=== PATIENT | female | born 1995 | race Caucasian/White ===

== ENCOUNTER 2023-02-05 18:13 | Outpatient (OUT) | payer OTHER, SELFPAY ==
--- NOTE | 2023-02-05 18:15 | US_ITS ---
[address] [address] Patient Name: EVELYN MARION MRN: [id number] date: 1995 Sex: F Assigned Patient Location: Current Patient Location: Accession/Order Number: [id number] Exam Date: 02/05/2023 18:20 Report Date: 02/08/2023 15:45 At the request of: NICK HILTON Procedure: US OB anatomy EXAMINATION: US OB anatomy HISTORY: 20 WEEKS GESTATION Z 3A.20 COMPARISON: No relevant comparison available. TECHNIQUE: Transabdominal sonographic examination was performed for obstetrical and evaluation. FINDINGS: Number: 1 Heart Rate: 138.5 bpm H.B. /min Amniotic Fluid Volume: Subjectively normal Placental Location: ANTERIOR Cervix Length: 3.5 cm, closed ANATOMY: Normal Structures -cerebellum, choroid plexus, cisterna magna, lateral cerebral ventricles, orbits, midline falx, hard palate, four-chamber heart, RVOT, LVOT, stomach, kidneys, bladder, three-vessel cord, right upper extremity, left upper extremity, right lower extremity, left lower extremity. SUBOPTIMALLY SEEN: Abdominal cord insertion and spine ABNORMALITIES: None BIOMETRY: BPD: 4.6 cm 19 weeks 6 days HC: 17.9 cm 20 weeks 3 days AC: 15.0 cm 20 weeks 2 days FL: 3.1 cm 19 weeks 4 days EFW:323.9 grams; 28% FL/AC: 20.7 FL/BPD: 67.7 HC/AC: 1.2 GESTATIONAL AGE: Age by EDC: 20 weeks 2 days MONO by EDC: 06/23/2023 Age by current US: 20 weeks 0 days MONO by current US: 06/25/2023 US/US OB anatomy IMPRESSION: 1. Single live intrauterine with growth detailed above. Electronically authenticated by: JALEN ALVAREZ Date: 02/08/2023 15:45
== END 2023-02-05 18:14 | disposition home or self-care (01) ==
PROVIDERS: PCP Family Medicine; Visit Provider Midwife
DX: Z34.92 Encounter for supervision of normal pregnancy, unspecified, second trimester (principal)
CPT/HCPCS: 76805

== ENCOUNTER 2023-02-13 20:54 | Emergency (ER) | payer OTHER, SELFPAY ==
[2023-02-13 22:08] VITALS: BP 127/80; PULSE 92; RESP 20; TEMP 37.3; O2SAT 94; BMI 24.5
[2023-02-13 22:40] LABS: Bilirubin Urine NEGATIVE (NEGATIVE); Blood Urine NEGATIVE (NEGATIVE); Clarity Urine CLEAR (CLEAR); Color Urine LT. YELLOW (YELLOW); Glucose Urine UA NEGATIVE (NEGATIVE); Ketones Urine NEGATIVE (NEGATIVE); Leukocyte Esterase Urine NEGATIVE (NEGATIVE); Nitrite Urine NEGATIVE (NEGATIVE); Protein Urine NEGATIVE (NEG/TRACE); Specific Gravity Urine <=1.005 (1.005-1.025); Urobilinogen Urine 0.2 EU/dL (0.2-1.0)
[2023-02-13 22:43] LABS: Urine Microscopic Indicated NO
--- NOTE | 2023-02-13 23:34 | ED.GENADUL1 ---
HPI - General Adult General Chief complaint: Headache Stated complaint: HEADACHE Time Seen by Provider: 02/13/23 23:30 Source: patient Source information: PATIENT Mode of arrival: walk-in Limitations: no limitations History of Present Illness HPI narrative: 27-year-old female presents for headache. She's , twenty-one weeks. 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 She's been taking Fioricet and Tylenol. It's behind her right eye. No trauma fever or stiff neck and she hasn't had sore throat or cough or earache. The pain is moderate. She feels the baby moving and she's had no vaginal bleeding. Related Data Home Medications Medication Instructions Recorded Confirmed VITAMINS 02/13/23 buspirone 10 mg tablet mg 02/13/23 shjzaxjqtq-bgeqawvvjcxcj-evvavzke tab 02/13/23 50 mg-325 mg-40 mg tablet magnesium 02/13/23 sertraline 100 mg tablet mg 02/13/23 Previous Rx's Medication Instructions Recorded metoclopramide HCl 10 mg tablet 10 mg PO Q6H PRN headache #30 tabs 02/14/23 (Reglan) Allergies Allergy/AdvReac Type Severity Reaction Status Date / Time sumatriptan Allergy Severe Chest Pain Verified 02/13/23 22:17 topiramate [From Topamax] Allergy Severe Hallucinati Verified 02/13/23 22:17 ng Review of Systems ROS Narrative A ten point review of systems is negative except as noted above. PFSH PFSH Social History Smoking status: Never smoker Exam Narrative Exam Narrative: Nurse's notes and vital signs reviewed. The patient is not hypoxic. General: Alert, no acute distress, patient resting comfortably Patient is not toxic or lethargic. Skin: warm, intact, no pallor noted Head: Normocephalic, atraumatic Eye: Normal conjunctiva, no exudates Ears, Nose, Throat: oral mucosa well hydrated, neck supple, no nuchal rigidity Neck: neck supple Cardio: Regular Rate and Rhythm Respiratory: No acute distress, no rhonchi, wheezing or rales noted. No stridor or retractions are noted. Abdomen: soft, nontender, no masses detected. No rebound, guarding, or rigidity noted. Neurological: and or oriented. Upper and lower extremity strength intact. Psychiatric: Cooperative Constitutional Vital Signs, click to edit/add: Last Vital Signs Temp 99.2 F 02/13/23 22:08 Pulse 92 H 02/13/23 22:08 Resp 20 02/13/23 22:08 BP 127/80 02/13/23 22:08 Pulse Ox 94 L 02/13/23 22:08 O2 Del Method Room Air 02/13/23 22:08 Course Vital Signs Vital signs: Vital Signs Temperature 99.2 F 02/13/23 22:08 Pulse Rate 92 H 02/13/23 22:08 Respiratory Rate 02/13/23 22:08 Blood Pressure 127/80 02/13/23 22:08 Pulse Oximetry 94 L 02/13/23 22:08 Oxygen Delivery Method Room Air 02/13/23 22:08 Temperature 99.2 F 02/13/23 22:08 Pulse Rate 92 H 02/13/23 22:08 Respiratory Rate 02/13/23 22:08 Blood Pressure 127/80 02/13/23 22:08 Pulse Oximetry 94 L 02/13/23 22:08 Oxygen Delivery Method Room Air 02/13/23 22:08 Medical Decision Making MDM Narrative Medical decision making narrative: the patient was given IV fluids and IV Reglan and feels improved. She is discharged home with a prescription for Reglan. I've no clinical suspicion of sinusitis or acute intracranial pathology. Treatment diagnosis and follow-up were discussed with the patient and her parents. Differential Diagnosis Differential Diagnosis: nonspecific headache, sinusitis, intracranial hemorrhage Lab Data Lab results reviewed: Yes I reviewed the patient's lab results Labs: Lab Results 02/13/23 02/13/23 Range/Units 22:20 23:43 WBC 12.4 H (4.0-11.0) 10^3/uL RBC 3.47 L (4.20-5.40) 10^6/uL Hgb 10.4 L (12.0-16.0) g/dL Hct 31.6 L (36.0-48.0) % MCV 91.1 (81.0-99.0) fL MCH 30.0 (26.7-34.0) pg MCHC 32.9 (29.9-35.2) g/dL RDW 13.9 (11.0-15.0) % Plt Count 211 (150-450) 10^3/uL MPV 9.8 (9.5-13.5) fL Neut % (Auto) 77.1 H (43.0-75.0) % Lymph % (Auto) 14.0 L (20.5-60.0) % Elk % (Auto) 7.3 (1.7-12.0) % Eos % (Auto) 0.7 L (0.9-7.0) % Baso % (Auto) 0.2 (0.2-2.0) % Neut # (Auto) 9.6 H (1.4-6.5) 10^3/uL Lymph # (Auto) 1.7 (1.2-3.8) 10^3/uL Elk # (Auto) 0.9 H (0.3-0.8) 10^3/uL Eos # (Auto) 0.1 (0.0-0.7) 10^3/uL Baso # (Auto) 0.0 (0.0-0.1) 10^3/uL Abs Immat Gran (auto) 0.09 H (0.00-0.03) 10^3/uL Imm/Tot Granulo (auto) 0.7 H (0.0-0.5) % Sodium 137 (136-145) mmol/L Potassium 3.9 (3.5-5.1) mmol/L Chloride 103 (98-107) mmol/L Carbon Dioxide 25.3 (21.0-32.0) mmol/L Anion Gap 12.6 BUN 12.0 (7.0-18.0) mg/dL Creatinine 0.53 L (0.55-1.02) mg/dL Est GFR ( Amer) >60 (>=60) Est GFR (Non-Af Amer) >60 (>=60) BUN/Creatinine Ratio 22.6 Glucose 81 (74-106) mg/dL Calcium 8.2 L (8.5-10.1) mg/dL Urine Color Lt. yellow (YELLOW) Urine Clarity Clear (CLEAR) Urine pH 7.0 (5.0-9.0) Ur Specific Broussard <=1.005 A (1.005-1.025) Urine Protein Negative (NEG/TRACE) mg/dL Urine Glucose (UA) Negative (NEGATIVE) mg/dL Urine Ketones Negative (NEGATIVE) mg/dL Urine Occult Blood Negative (NEGATIVE) Urine Nitrite Negative (NEGATIVE) Urine Bilirubin Negative (NEGATIVE) Urine Urobilinogen 0.2 (0.2-1.0) EU/dL Ur Leukocyte Esterase Negative (NEGATIVE) Discharge Plan Discharge Chief Complaint: Headache Clinical Impression: Headache Patient Disposition: Home, Self-Care Time of Disposition Decision: 01:22 Condition: Good Mode of Transportation: Private Vehicle Prescriptions / Home Meds: New metoclopramide HCl [Reglan] 10 mg tablet 10 mg PO Q6H PRN (Reason: headache) Qty: 30 0RF No Action sertraline 100 mg tablet ijmatsiztz-xcrygsfcwjnuk-ngkn 50-325-40 mg tablet buspirone 10 mg tablet magnesium Rx Instructions: 400MG PO DAILY AT HS VITAMINS Rx Instructions: 1 TAB DAILY Instructions: Acute Headache (ED) Stand Alone Forms: Portal Instructions Referrals: JAQUELINE GIBBS [Primary Care Provider] - 1 week
[2023-02-13 23:50] LABS: Basophils Percent Auto 0.2 % (0.2-2.0); Eosinophils Absolute Auto 0.1 10^3/uL (0.0-0.7); Eosinophils Percent Auto 0.7 % (0.9-7.0); Hematocrit 31.6 % (36.0-48.0); Hemoglobin 10.4 g/dL (12.0-16.0); Immature Granulocytes Abs Auto 0.09 10^3/uL (0.00-0.03); Immature Granulocytes Pct Auto 0.7 % (0.0-0.5); Lymphocytes Absolute Auto 1.7 10^3/uL (1.2-3.8); Mean Corpuscular HGB Conc 32.9 g/dL (29.9-35.2); Mean Corpuscular Volume 91.1 fL (81.0-99.0); Mean Platelet Volume 9.8 fL (9.5-13.5); Monocytes Absolute Auto 0.9 10^3/uL (0.3-0.8); Monocytes Percent Auto 7.3 % (1.7-12.0); Neutrophils Absolute Auto 9.6 10^3/uL (1.4-6.5); Neutrophils Percent Auto 77.1 % (43.0-75.0); Platelet Count 211 10^3/uL (150-450); Red Blood Count 3.47 10^6/uL (4.20-5.40); Red Cell Distribution Width 13.9 % (11.0-15.0); White Blood Count 12.4 10^3/uL (4.0-11.0)
[2023-02-14 00:01] LABS: Anion Gap 12.6; BUN Creatinine Ratio 22.6; Calcium 8.2 mg/dL (8.5-10.1); Carbon Dioxide 25.3 mmol/L (21.0-32.0); Chloride 103 mmol/L (98-107); Estimated GFR (African America >60 (>=60); Estimated GFR (Non-African Ame >60 (>=60); Glucose 81 mg/dL (74-106); Potassium 3.9 mmol/L (3.5-5.1); Sodium 137 mmol/L (136-145)
[2023-02-14] MEDS: METOCLOPRAMIDE HCL 10 MG/2 ML VIAL IVP (00:13)
[2023-02-14] MEDS: 0.9 % SODIUM CHLORIDE 1,000 ML 1000 ML IV (00:48)
[2023-02-14 01:30] VITALS: BP 127/80; PULSE 78; RESP 16; O2SAT 98
== END 2023-02-14 01:38 | disposition home or self-care (01) ==
PROVIDERS: Emergency Provider Emergency Medicine; PCP Family Medicine
DX: O99.891 Other specified diseases and conditions complicating pregnancy (principal); R51.9 Headache, unspecified; Z3A.21 21 weeks gestation of pregnancy
CPT/HCPCS: 36415; 80048; 81003; 85025; 96374; 99284

== ENCOUNTER 2023-04-30 16:53 | Outpatient (OUT) | payer BC, SELFPAY ==
[2023-04-30 17:08] VITALS: TEMP 36.5
[2023-04-30 17:09] VITALS: BP 133/74; PULSE 81; RESP 16
--- NOTE | 2023-04-30 17:22 | PC.NURSE ---
Addendum entered by Divina Hendrickson 04/30/23 17:28: Pt tani cxt's or leaking of fluid. Original Note: Pt states her c/o of increased of BPs today while working. 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 Pt also states she is has been dizzy and nauseous. Pt states this all began last night 04/29. Pt states she has had an overall healthy . Pt hx of anemia and miscarriage early 2022.
[2023-04-30 17:31] VITALS: BP 126/74; PULSE 75
[2023-04-30 17:34] LABS: Bilirubin Urine NEGATIVE (NEGATIVE); Blood Urine NEGATIVE (NEGATIVE); Clarity Urine CLEAR (CLEAR); Color Urine LT. YELLOW (YELLOW); Glucose Urine UA NEGATIVE (NEGATIVE); Ketones Urine NEGATIVE (NEGATIVE); Leukocyte Esterase Urine NEGATIVE (NEGATIVE); Nitrite Urine NEGATIVE (NEGATIVE); Protein Urine NEGATIVE (NEG/TRACE); Urobilinogen Urine 0.2 EU/dL (0.2-1.0)
[2023-04-30 17:36] LABS: Urine Microscopic Indicated NO
== END 2023-04-30 18:05 | disposition home or self-care (01) ==
LOC: FBCO 16:58 → FBC 17:00
PROVIDERS: PCP Family Medicine; Visit Provider Obstetrics & Gynecology
DX: O16.9 Unspecified maternal hypertension, unspecified trimester (principal); Z3A.36 36 weeks gestation of pregnancy
CPT/HCPCS: 59025; 81003; 87811

== ENCOUNTER 2023-06-08 11:13 | Inpatient (IN) | payer BC, SELFPAY ==
[2023-06-08] VITALS (31 sets, daily range): BP systolic 99–138; BP diastolic 51–87; PULSE 67–111; RESP 15–24; TEMP 36.1–37.3; O2SAT 97–99
--- OUTSIDE RECORDS SUMMARY | 2023-06-08 11:20 | XMS_ITS | CCD ---
Author Name Unknown Address [address] [place] [address] Organization [facility] Care Team Providers Care Force Dispatcher Name Role Phone Sol Gibbs Primary Care Provider Sol Gibbs Unavailable Unavailable Unavailable Sol Gibbs MD Primary Care Provider SOL GIBBS Primary Care Unavailable KEISHA HURT Referring Unavailable SOL GIBBS Primary Care Unavailable SIMI BARBOZA Attending Unavailable Robles Hardin Attending Unavailable Robles Hardin Admitting Unavailable Sol Gibbs Primary Care Unavailable SOL GIBBS Attending Unavailable NICK HILTON Attending Unavailable NICK HILTON Attending Unavailable FLORONICK Attending Unavailable FLORONICK Attending Unavailable SHANNEN HILTONE Bettye Referring Unavailable NICK HILTON Attending Unavailable Allergies Allergy Classification Reported Allergen(s) Allergy Type Date of Onset Reaction(s) Facility (2 sources) topiramate; Translations: [Topamax] Drug Allergy 1 Other (See Comments) [facility] [employer] 250 DO Work Phone: (1 source) Triptans; Translations: [Triptans] Allergy to drug (finding) Chest Pain, Palpitations [facility] [employer] 250 DO Work Phone: (1 source) SUMAtriptan Drug Allergy 1 Other (See Comments) [employer] (1 source) topiramate Drug Allergy 2 [facility] Rep[facility] (1 source) [id number] Antimigraine Agents Drug allergy (disorder) 2 [facility] Medications Current Medications Medication Drug Class(es) Dates Sig (Normalized) Sig (Original) magnesium sulfate 4 g, lidocaine (cardiac) (XYLOCAINE) 100 mg in sodium chloride 0.9 % 250 mL IVPB (1 source) Start: 11-13-2019 magnesium sulfate 4 g, lidocaine (cardiac) (XYLOCAINE) 100 mg in sodium chloride 0.9 % 250 mL IVPB 2 ml metoclopramide 5 mg/ml prefilled syringe (2 sources) Dopamine-2 Receptor Antagonist Start: 09-15-2021 metoclopramide (REGLAN) injection 10 mg Start: 11-13-2019 metoclopramide (REGLAN) tablet 10 mg omeprazole 20 mg delayed release oral capsule (2 sources) Proton Pump Inhibitor Start: 06-22-2012 take 1 capsule by mouth once daily omeprazole (PRILOSEC) 20 MG capsule Indications: Chronic generalized abdominal pain Take 1 capsule by mouth Daily. 30 capsule 3 06/22/2012 Active polyethylene glycol 3350 [id number] mg powder for oral solution (2 sources) Osmotic Laxative take 17 g by mouth once daily polyethylene glycol (GLYCOLAX) packet Take 17 g by mouth daily. 0 Active 1000 ml sodium chloride 9 mg/ml injection (3 sources) Start: 09-15-2021 0.9 % sodium chloride infusion Start: 11-13-2019 End: 11-13-2019 0.9 % sodium chloride bolus Start: 11-13-2019 0.9 % sodium c hloride infusion Completed/Discontinued Medications Medication Drug Class(es) Dates Sig (Normalized) Sig (Original) [id number] 60 actuat albuterol 0.09 mg/actuat metered dose inhaler (1 source) beta2-Adrenergi c Agonist Start: 01-01-2021 Albuterol Sulfate HFA 108 (90 Base) MCG/ACT Inhalation Aerosol Solution Quantity: 8 Refills: 0 Ordered: 01-Jan-2021 DO Start : 01-Jan-2021 Active cyclobenzaprine hydrochloride 10 mg oral tablet (1 source) Muscle Relaxant Start: 11-12-2020 take 1 tablet by mouth twice daily Cyclobenzaprine HCl - 10 MG Oral Tablet Take 1 tablet twice daily Quantity: 0 Refills: 0 Ordered: 02-Apr-2021 DO Start : 12-Nov-2020 Active cyproheptadine hydrochloride 4 mg oral tablet (1 source) Start: 05-21-2021 take 1 tablet by mouth three times daily Cyproheptadine HCl - 4 MG Oral Tablet TAKE 1 TABLET 3 TIMES DAILY. Quantity: 0 Refills: 0 Ordered: 21-May-2021 DO Start : 21-May-2021 Active dexamethasone (DECADRON) 40 mg in sodium chloride 0.9 % 100 mL IVPB (2 sources) Start: 09-15-2021 End: 09-15-2021 dexamethasone (DECADRON) 40 mg in sodium chloride 0.9 % 100 mL IVPB Start: 11-13-2019 dexamethasone (DECADRON) 40 mg in sodium chloride 0.9 % 100 mL IVPB Magnesium (1 source) Magnesium CAPS T JUICE 1 CAPSULE Daily Quantity: 0 Refills: 0 Ordered: 04-Jun-2021 DO Active magnesium sulfate 4,000 mg, lidocaine (cardiac) (XYLOCAINE) 100 mg in sodium chloride 0.9 % 250 mL IVPB (1 source) Start: 09-16-19 End: 09-16-19 magnesium sulfate 4,000 mg, lidocaine (cardiac) (XYLOCAINE) 100 mg in sodium chloride 0.9 % 250 mL IVPB metoprolol tartrate 25 mg oral tablet (1 source) beta-Adrenergic Nancie Start: 04-01-20 take 1 tablet by mouth twice daily Metoprolol Tartrate 25 MG Oral Tablet TAKE 1 TABLET TWICE DAILY. Quantity: 180 Refills: 3 Ordered: 19-Jun-2020 DO Start : 01-Apr-2020 Active Multi Vitamin TABS (1 source) Multi Vitamin TA BS TAKE 1 TABLET DAILY. Quantity: 0 Refills: 0 Ordered: 04-Jun-2021 DO Active ondansetron 8 mg disintegrating oral tablet (1 source) Serotonin-3 Receptor Antagonist Start: 08-21-19 21 Ondansetron 8 MG Oral Tablet Disintegrating As needed. Quantity: 0 Refills: 0 Ordered: 20-Aug-2020 DO Start : 20-Aug-2020 Active promethazine hydrochloride 25 mg oral tablet (1 source) Phenothiazine Start: 04-01-20 20 Promethazine HCl - 25 MG Oral Tablet As needed. Quantity: 0 Refills: 0 Ordered: 19-Jun-2020 DO Start : 01-Apr-2020 Active ubidecarenone 200 mg oral capsule (1 source) Co Q-10 200 MG O ral Capsule TAKE DIRECTED. Quantity: 0 Refills: 0 Ordered: 04-Jun-2021 DO Active ubrogepant 50 mg oral tablet (1 source) Start: 08-21-19 take 1 tablet by mouth once daily as needed Ubrelvy 50 MG Oral Tablet TAKE 1 TABLET Daily prn Quantity: 0 Refills: 0 Ordered: 20-Aug-2020 DO Start : 20-Aug-2020 Active 5 ml valproic acid 100 mg/ml injection (2 sources) Mood Stabilizer, Anti-epileptic Agent Start: 09-16-19 End: 09-16-19 valproate (DEPACON) injection 1,090 mg Start: 11-13-2019 valproate (DEP ACON) injection 2,000 mg zolpidem tartrate 10 mg oral tablet (1 source) gamma-Aminobutyric Acid-ergic Agonist Start: 04-01-2021 take 1 tablet by mouth at bedtime as needed Zolpidem Tartrate 10 MG Oral Tablet TAKE 1 TABLET AT BEDTIME NEEDED. Quantity: 0 Refills: 0 Ordered: 01-Apr-2021 DO Start : 01-Apr-2021 Active zonisamide 100 mg oral capsule (1 source) Anti-epileptic Agent Start: 04-02-2020 take 1 capsule by mouth once daily Zonegran 100 MG Oral Capsule TAKE 1 CAPSULE Daily Quantity: 0 Refills: 0 Ordered: 13-Jun-2020 DO Start : 02-Apr-2020 Active Problems Active Problems Problem Classification Problem Date Documented Date Episodic/Chronic Cardiac dysrhythmias (2 sources) Palpitations; Translations: [Palpitations] Episodic Headache; including migraine (3 sources) Migraine without aura, not refractory ; Translations: [Migraine without aura, not intractable, with status migrainosus] Onset: 09-05-2021 Chronic Heart valve disorders (1 source) Heart murmur; Translations: [Undiagnosed cardiac murmurs] Episodic Other lower respiratory disease (1 source) Dyspnea on exertion; Translations: [Other respiratory abnormalities] Episodic Other screening for suspected conditions (not mental disorders or infectious disease) (1 source) Electrocardiogram abnormal; Translations: [Nonspecific abnormal electrocardiogram [ECG] [EKG]] Episodic Residual codes; unclassified (1 source) Body mass index 20-24 - normal; Translations: [Body Mass Index between 19-24, adult] Episodic Thyroid disorders (2 sources) Secondary hypothyroidism; Translations: [Other specified hypothyroidism] Onset: 06-22-2012 06-22-2012 Chronic Unclassified (1 source) R00.2 - Palpitations; Translations: [R00.2 - Palpitations] Onset: 06-14-2021 Viral infection (1 source) Disease caused by 2019-nCoV; Translations: [Other specified viral infection] Episodic Past or Other Problems Problem Classification Problem Date Documented Da te Episodic/Chronic Abdominal pain (2 sources) Generalized abdominal pain; Translations: [Generalized abdominal pain] Onset: 06-22-2012 06-22-2012 Episodic Other gastrointestinal disorders (2 sources) Chronic constipation; Translations: [Other constipation] Onset: 06-22-2012 06-22-2012 Episodic Unclassified (1 source) Never smoked tobacco; Translations: [Never smoker] Results Test Name Value Interpretation Reference Range Facility US OB FOLLOW UP TRANSABDOMIN AL APPROACHon 04-13-2023 OB FOLLOW UP TRANSABDOMINAL APPROACH FINDINGS: Single live intrauterine . heart rate 153 bpm. Somatic movement identified. Breech position. Anterior grade 0 placenta. GALINA 15.09 cm. Cervical length 3.8 cm. Estimated sonographic gestational age 27 weeks, 6 days. Gestational age by dates, 28 weeks, 6 days. Estimated sonographic date of delivery July 13, 2023. Estimated weight 1305 g (13.1% by LMP percentile). BPD 7.45 cm. HC 27.59 cm. FL 5.01 cm. AC 25.65 cm. IMPRESSION: Impression: Single live intrauterine with estimated sonographic gestational age 27 weeks, 6 days. Estimated weight 1305 g. ELECTRONICALLY SIGNED BY: Esdras Mercer MD Normal Not Available US Venous, Unilat, Upper Ext Lefton 11-07-2021 US Venous, Unilat, Upper Ext Left HISTORY: Wrist pain, s/p intravenous infusion FINDINGS: No deep venous thrombosis. Focal thrombus localizes to the palpable lump (palmar aspect of the wrist), presumably within or near the intravenous access site. No extension into the deep system. Overall length approximates 1.9 cm. IMPRESSION: 1. No deep venous thrombosis. 2. Superficial thrombophlebitis, distal forearm/wrist. Report reported and signed by Mike Tyson on 11/07/2021 1227 Normal [facility] Director Of Channel Marketing HCG, SERUM, QUALITATIVEon hCG Qual Negative [facility] Serum HCG Qualitativeon Serum HCG Qualitative Negative Normal [facility] Comment on above: Performed By: #### S HCG #### [facility] [address] [place] [address] Q - TSH and T4,FREEon 2021 Free T4 [Mass/Vol] 1.2 ng/dL Normal 0.8-1.8 Moise [facility] Director Of Channel Marketing Comment on above: Order Comment: [facility] Testing performed at: [employer] [facility] [address], [address] [place] [address], [address] [place] [address], [address] [place] [address], Obstetrics Teacher: Devaughn Omalley MD [facility] Collection Date/Time: [facility] Results Received Date/Time: [facility] Reported Date/Time: Performed By: #### 3 [id number] #### [facility] Default [address] [place] [address] TSH Qn 1.51 m[IU]/L Normal [facility] Comment on above: Order Comment: [facility] Testing performed at: [employer] [facility] [address], [address] [place] [address], [address] [place] [address], [address] [place] [address], Obstetrics Teacher: Devaughn Omalley MD [facility] Collection Date/Time: [facility] Results Received Date/Time: [facility] Reported Date/Time: Result Comment: Refe rence Range > or = 20 Years 0.40-4.50 Ranges First trimester 0.26-2.66 Second trimester 0.55-2.73 Third trimester 0.43-2.91 Performed By: #### 3 128 #### [facility] [address] [place] [address] Office Visit (Cardiology)on 06-04-2021 Follow-up visit Diagnoses/Problems Assessed Dyspnea on minimal exertion (786.09) (R06.00) Sinus tachycardia (427.89) (R00.0) COVID-19 (079.89) (U07.1) Body mass index (BMI) of 21.0 to 21.9 in adult (V85.1) (Z68.21) Patient Instructions By signing my name below, I, Harleen Maddox LPN, attest that this documentation has been prepared under the direction and in the presence of Dr. Franc Escobedo DO. All medical record entries made by the Franciscaibe were at my direction and personally dictated by me. I have reviewed the chart and agree that the record accurately reflects my personal performance of the history, physical exam, discussion and plan. Please bring all medicines, vitamins, and herbal supplements with you when you come to the office. Prescriptions will not be filled unless you are compliant with your follow up appointments or have a follow up appointment scheduled as per instruction of your physician. Refills should be requested at the time of your visit. Follow up as needed only Chief Complaint EVELYN MARION is being seen for an annual follow-up of High heart rate 140-160 resting. 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 She recently had COVID illness, primarily affecting the lungs, did not need to be hospitalized and noted that resting heart rates were ranging between 120 and upwards as high as 160. She now has normalized her heart rate in the eighties, as noted today resting heart rate is 88 and after sitting and resting quietly is down to 80 beats a minute. She has no history of arrhythmia other than sinus tachycardia, has a history of thyroid nodule without hyper or hypothyroidism. There is no evidence of syncope or evidence of orthostatic hypotension. She does have a history of migraines and reactive airways details of medications have been reviewed. I do not believe this is POTS syndrome at this point in time she may have inappropriate sinus tachycardia that could be exacerbated by some of her other medications including albuterol, possibly zolpidem or Zonegran or promethazine. In any event she is otherwise healthy, will continue to recommend metoprolol and may increase her morning dose to 50 mg as needed, no further testing is warranted. If she has persistent recurrent sinus tachycardia, consideration for referral for inappropriate sinus tachycardia to EP service may be warranted. Surgical History Problems Denied: History of Complete colonoscopy History of Esophagogastroduodenoscopy History of Lymph node surgery Current Meds Medication NameInstruction Albuterol Sulfate HFA 108 (90 Base) MCG/ACT Inhalation Aerosol Solution Co Q-10 200 MG Oral CapsuleTAKE DIRECTED. Cyclobenzaprine HCl - 10 MG Oral TabletTake 1 tablet twice daily Cyproheptadine HCl - 4 MG Oral TabletTAKE 1 TABLET 3 TIMES DAILY. Magnesium CAPSTAKE 1 CAPSULE Daily Metoprolol Tartrate 25 MG Oral TabletTAKE 1 TABLET TWICE DAILY. Multi Vitamin TABSTAKE 1 TABLET DAILY. Ondansetron 8 MG Oral Tablet DisintegratingAs needed. Promethazine HCl - 25 MG Oral TabletAs needed. Ubrelvy 50 MG Oral TabletTAKE 1 TABLET Daily prn Zolpidem Tartrate 10 MG Oral TabletTAKE 1 TABLET AT BEDTIME NEEDED. Zonegran 100 MG Oral CapsuleTAKE 1 CAPSULE Daily Allergies Medication Topamax Hallucinations;; Recorded By: Crys Zamora; 06/03/2021 12:00:53 PM Triptans Chest Pain; Palpitations; Recorded By: Crys Zamora; 06/03/2021 12:00:53 PM Social History Problems Never smoker No illicit drug use Occasional alcohol use Occasional caffeine consumption Review of Systems Constitutional: not feeling tired. Cardiovascular: no intermittent leg claudication and as noted in HPI. Respiratory: shortness of breath, but no cough. Gastrointestinal: no change in bowel habits and no blood in stools. Integumentary: no skin rashes. Neurological: dizziness, but no seizures and no frequent falls. All other systems have been reviewed and are negative for complaint. Vitals Vital Signs Recorded: 04Jun2021 10:58AM Heart Rate88, L Brachial Artery [id number], LUE, Sitting [id number], LUE, Sitting Height5 ft 7 in Isqfyd784 lb BMI Ljwgijjstm72.3 kg/m2 BSA Calculated1.72 Tobacco Useb) No Fall Screeningc) Not medically indicated Physical Exam Constitutional: alert and in no acute distress. Neck: neck is supple, symmetric, trachea midline, no masses and no thyromegaly . Pulmonary: no increased work of breathing or signs of respiratory distress and lungs clear to auscultation. Cardiovascular: carotid pulses 2+ bilaterally with no bruit , JVP was normal, no thrills , regular rhythm, normal S1 and S2, no murmurs , pedal pulses 2+ bilaterally and no edema . Abdomen: abdomen non-tender, no masses and no hepatomegaly . Skin: skin warm and dry, normal skin turgor . Psychiatric judgment and insight is normal and oriented to person, place and time . Signatures Electronically signed by : Franc Escobedo DO; Jun 04 2021 1:39PM (more content not included)... Normal [employer] Tobacco Screening.on 022 Fall risk assessment c) Not medically indicated [facility] 250 DO Work Phone: Tobacco use status [facility] b) No [facility] 250 DO Work Phone: HCG, SERUM, QUALITATIVEon hCG Qual Negative [place], [place] Coding Summary.on 05-09-2018 Coding Summary. CODING DATE: 018 FINAL [facility] STATUS: Home (Routine DC) PAYOR: Government ADMIT DX: REASON FOR VISIT DX: Z01.419 Encounter for gynecological examination (general) (routine) without abnormal findings FINAL DX: PRINCIPAL: Z01.419 Encounter for gynecological examination (general) (routine) without abnormal findings SECONDARY: Z78.9 Other specified health status PROCEDURES DOCTOR NAME DATE NOTE: The code number assigned matches the documented diagnosis and / or procedure in the patient's chart. However, the narrative phrase printed from the coding software may appear abbreviated, or result in slightly different terminology. Coded By: Cris Joel CphT Date Saved: 05/09/2018 10:03 am Normal [facility] Lab Miscellaneouson 05-07-20 Status See Ref Lab Report Normal [facility] Comment on above: Performed By: #### 1 [id number] #### [facility] [address] [place] [address] Lab Miscellaneouson 04-28-20 Test Name PAP [facility] Comment on above: Performed By: #### 1 [id number] #### [facility] [address] [place] [address] Vital Signs Date Time Vital Sign Value Performing Clinician Gerald gutierrez 09-15-2021 14:33-0400 Diastolic blood pressure 70 mm[Hg] [facility] 2 [facility] 09-15-2021 14:33-0400 Heart rate 108 /min [address] 09-15-2021 14:33-0400 Systolic blood pressure 141 mm[Hg] [address] [place] 09-15-2021 10:30-0400 Body temperature 98.4 [degF] [address] [place] 09-15-2021 10:30-0400 Respiratory rate 18 /min [address] [place] 09-15-2021 10:30-0400 SaO2% (BldA) [Mass fraction] 100 % [address] [place] 06-04-2021 10:58-0500 Body height 170.18 cm Sol Llanos [employer] Work Phone: [facility] [employer] 250 DO Work Phone: 06-04-2021 10:58-0500 Body mass index (BMI) [Ratio] 21.3 kg/m2 Sol Llanos [employer] Work Phone: [facility] [employer] 250 DO Work Phone: 06-04-2021 10:58-0500 Body surface area Derived from formula 1.72 m2 Sol Llanos [employer] Work Phone: [facility] [employer] ([employer] 250 DO Work Phone: 06-04-2021 10:58-0500 Body weight 61.69 kg Sol Llanos [employer] Work Phone: [facility] [employer] 250 DO Work Phone: 06-04-2021 10:58-0500 Diastolic blood pressure 53 mm[Hg] Sol Llanos [employer] Work Phone: [facility] [employer] 250 DO Work Phone: 06-04-2021 10:58-0500 Heart rate 88 /min Sol Llanos [employer] Work Phone: [facility] [employer] 250 DO Work Phone: 06-04-2021 10:58-0500 Systolic blood pressure 108 mm[Hg] Sol Llanos [employer] Work Phone: [facility] [employer] 250 DO Work Phone: 11-13-2019 10:40-0400 BMI (Body Mass Index) 20 kg/m2 [facility] [place], [place] 11-13-2019 10:40-0400 Body Temperature 97.81 [degF] [facility] [place] [place] 11-13-2019 10:40-0400 Body weight 57.92 kg [facility] [place] , [place] 11-13-2019 10:40-0400 BP Diastolic 90 mm[Hg] [facility] [place] 11-13-2019 10:40-0400 BP Systolic 118 mm[Hg] [facility] [place] 11-13-2019 10:40-0400 Height 170.2 cm [facility] 1 [facility] [place] , [place] 11-13-2019 10:40-0400 Pulse (Heart Rate) 91 /min [facility] 1 [facility] [place], [place] 11-13-2019 10:40-0400 Pulse Oximetry 100 % [facility] 1 [facility] [place] , [place] 11-13-2019 10:40-0400 Respiratory Rate 16 /min [facility] [place] Encounters Encounter Date Encounter Type Care Provider Facility Start: 06-01-2023 End: 06-02-2023 ambulatory NICK L FLORO Not Available Start: 05-24-2023 End: 05-25-2023 ambulatory NICK L FLORO Not Available Start: 05-18-2023 End: 05-19-2023 ambulatory NICK L FLORO Not Available Start: 05-04-2023 End: 05-05-2023 ambulatory NICK L FLORO Not Available Start: 04-13-2023 End: 04-14-2023 ambulatory NICK L FLORO Not Available Start: 04-06-2023 End: 04-07-2023 ambulatory NICK L FLORO Not Available Start: 04-02-2022 End: 04-02-2022 Emergency department patient visit [facility] Start: 09-15-2021 End: 09-16-2021 ambulatory [facility] Start: 09-15-2021 End: 09-15-2021 Subsequent hospital visit by physician [facility] Infusion Bed 2 [facility] OP INFUSION Comment on above: Migraine without aur a and with status migrainosus, not intractable (Primary Dx) Start: 06-14-2021 End: 06-15-2021 Emergency department patient visit [facility] Facility:[facility] Start: 06-04-2021 Office outpatient vi sit 15 minutes Sol Llanos [employer] Work Phone: [facility] A 250 DO Work Phone: Start: 11-13-2019 End: 11-13-2019 Subsequent hospital visit by physician Osiel[facility] Infusion Bed 1 [facility] OP INFUSION Comment on above: Arrived Procedures Date Procedure Procedure Detail Performing Clinician Start: 09-15-2021 Gonadotropin chorion ic qualitative Keisha Hurt MD Work Phone: Start: 11-13-2019 Gonadotropin chorion ic qualitative Keisha Hurt Work Phone: Start: 06-21-2019 Echocardiography Esophagogastroduodenoscopy Honey Llanos Wonderly Work Phone: Procedure on lymph node Sol Llanos Wonder[employer] Work Phone: NEGATED: Highlighted row has not occurred! Total colonoscopy Sol Llanos [employer] Work Phone: Plan of Treatment Date Care Activity Detail Author Start: 01-16-2020 Influenza vaccination Flu vacc ine (Season Ended) [place], [place] Start: 12-05-2019 DTaP/Tdap/Td vaccine (2 - Td or Tdap) DTaP/Tdap/Td vaccine (2 - Td or Tdap) [facility] Start: 2018 Screening for malign ant neoplasm of cervix [facility] Start: 2016 DTaP/Tdap/Td vaccine (1 - Tdap) DTaP/Tdap/Td vaccine (1 - Tdap) [place], [place] Start: 2015 Hepatitis C screening Hepatitis C sc reen [facility] Start: 2015 Thyroid stimulating hormone measurement TSH [facility] Start: 06-03-2013 TSH Qn TSH testing [place], [place] Start: 2013 Screening for Chlamy lucia trachomatis Chlamydia screen [facility] Start: 2012 HIV screening HIV screen [facility] Start: 2009 Depression Screen Depression Screen [facility] Start: 2008 HPV vaccine (1 - 2-d ose series) HPV vaccine (1 - 2-dose series) [place], [place] Start: 08-12-1998 Hepatitis B vaccine (2 of 3 - 3-dose primary series) Hepatitis B vaccine (2 of 3 - 3-dose primary series) [facility] Start: 1998 Varicella vaccine (1 of 2 - 2-dose childhood series) Varicella vaccine (1 of 2 - 2-dose childhood series) [place], [place] Immunizations Immunization Date Immunization Notes Care Provider Ronny solano 04-23-2021 Moderna COVID-19 Vac cine 100 MCG/0.5ML Intramuscular Suspension Sol Llanos [employer] [facility] Work Phone: 04-09-2021 influenza, injectabl e, quadrivalent, contains preservative Sol Llanos Wonderly [facility] Work Phone: 06-05-2020 Moderna COVID-19 Vac cine 100 MCG/0.5ML Intramuscular Suspension Sol Llanos [employer] [facility] DO Work Phone: 05-08-2020 Moderna COVID-19 Vac cine 100 MCG/0.5ML Intramuscular Suspension Sol Llanos [employer] Work Phone: [facility] 250 DO Work Phone: 01-16-2020 influenza virus vacc ine, unspecified formulation Sol Llanos Wonderly Work Phone: [facility] 250 DO Work Phone: 05-08-2019 Moderna COVID-19 Vac cine 100 MCG/0.5ML Intramuscular Suspension Sol Llanos Wonderly Work Phone: [facility] 250 DO Work Phone: 04-03-2019 influenza, injectabl e, quadrivalent, preservative free Sol Llanos Wonderly Work Phone: [facility] [employer] 250 DO Work Phone: 02-14-2019 influenza virus vacc ine, unspecified formulation Sol [facility]lanos Wonderly [facility] Work Phone: 01-25-2018 hepatitis B vaccine, adult dosage Sol Llanos Wonderly Work Phone: [facility] 250 DO Work Phone: 06-21-2017 hepatitis B vaccine, adult dosage Sol Llanos Wonderly Work Phone: [facility] 250 DO Work Phone: 06-21-2017 varicella virus vaccine Sol Llanos Wonderly Work Phone: [facility] 250 DO Work Phone: 05-19-2017 varicella virus vaccine Sol Llanos Wonderly Work Phone: [facility] 250 DO Work Phone: 05-05-2017 Human Papillomavirus 9-valent vaccine oSl Llanos Wonderly Work Phone: [facility] [employer] 250 DO Work Phone: 04-30-2017 hepatitis B vaccine, adult dosage Sol Llanos Wonderly Work Phone: [facility] 250 DO Work Phone: 12-28-2016 Human Papillomavirus 9-valent vaccine Sol Llanos Wonderly Work Phone: [facility] DO Work Phone: 10-27-2016 Human Papillomavirus 9-valent vaccine Sol Llanos Wonderly Work Phone: [facility] [employer] 250 DO Work Phone: 12-04-2009 tetanus toxoid, redu reji diphtheria toxoid, and acellular pertussis vaccine, adsorbed Sol Llanos Wonderly Work Phone: [facility] 250 DO Work Phone: 07-15-1998 hepatitis B vaccine, pediatric or pediatric/adolescent dosage Sol Llanos Wonderjuanpablo Work Phone: [facility] 250 DO Work Phone: 07-15-1998 measles, mumps and rubella virus vaccine Sol Llanos Wonderjuanpablo Work Phone: [facility] 250 DO Work Phone: Payers Date Payer Category Payer Unknown [id number] 2023 Unknown [id number] 2021 [employer] others) [id number] 2021 Self-pay 2019 [employer] ( [employer] others) [facility] xxxxxxxxx 2019-Present [address] [place] [address] xxxxxxxxx [id number] 2019 [employer] ( and others) [id number] 1997 Unknown [id number]. 2.185 1997 Unknown [id number] [id number]. 2.173 1997 Unknown [id number] [id number]. 2.1259 1997 Unknown [id number] [id number]. 2.1259 1997 Unknown [id number] [id number]. 2.1259 1997 Unknown [id number] [id number]. 2.1259 1997 Unknown [id number] [id number]. 2.1259 1997 Unknown [id number]. 2.1259 1997 Unknown [id number] [id number]. 2.1259 Unknown Unknown [id number] 2.531 Social History Date Type Detail Facility Start: 05-11-2012 End: 06-22-2012 Tobacco smoking status NVIS [facility] smoker [facility] Start: 06-22-2012 [facility] use No illicit drug use [facility] [address] DO Work Phone: History of Present illness Narrative 09-15-2021 Shawnee Kang RN - 09/15/2021 10:30 AM EDT Note Date & Type Note Facility 09-15-2021 History of Present illness Narrative 1030 Patient arrived to unit ambulatory accompanied by family member to room 200. Pain level of migraine 6/10 1100 Vital signs obtained per flow sheets. IV initiated 22G in L hand. 1115 NaCl bolus started and blood draw completed for HCG serum. Sent to lab. Patient placed on Telemetry 1131 IV reglan provided for nausea, order called for lunch. 1203 HCG serum results returned and negative. Mag with lidocaine started. Pain level of migraine 6/10 1233 pain 6/10 started dexamethasone 1306 pain 5/10 valproate IV push started, 1250MG as per order to round up to nearest 250MG. To be pushed over 10 min 30 seconds. 1315 pain 4/10 IV Mag restarted 1325 pain 4/10 IV dexamethasone restarted. 1340 pain 4/10 IV push valproate 250MG, remaining from 3rd vial, pushed over 5 minutes. 1400 pain 3/10 after IV push completed. IV removed vital signs per flow sheet. Patient left ambulatory from unit. documented in this encounter [facility] Phone: Evaluation note Note Date & Type Note Facility Evaluation note Diagnosis Migraine without aura and with status migrainosus, not intractable- Primary Migraine without aura, without mention of intractable migraine with status migrainosus documented in this encounter [facility] Phone: Reason for visit Narrative Treatment Plan and Therapy Plan (Routine) - Authorized Note Date & Type Note Facility Reason for visit Narrative Specialty Diagnoses / Procedures Referred By Contvalerie t Referred To Contact Diagnoses Migraine without aura and with status migrainosus, not intractable Procedures ND INJ MAGNESIUM SULFATE ND DEXAMETHASONE SODIUM PHOS ND DRUGS UNCLASSIFIED INJECTION Keisha Hurt MD [address] [place] [address] [facility] [address] [place] [address] Referral ID Status Reason Start Date Expiration Date V isits Requested Visits Authorized [id number] Authorized 09/05/2021 09/05/2022 99 99 [facility] Phone: Summary Purpose Family History No Family History Records FoundUnknown Family Member Name Dates Details Family history of diabetes m ellitus: Mother(V18.0, Z83.3) Status:Active Essential hypertension, iraj gn: Mother, Father Status:Active Family history of sleep apne a: Mother(V19.8, Z82.0) Status:Active High serum cholestanol: Moth er, Father Status:Active High triglycerides: Mother Status:Active Advance Directives No Advanced Directives Records FoundDocuments on File Type Date Recorded 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 Patient reports 2/10 for headache pain. As per infusion orders patient is able to be discharged. No adverse reactions noted to medications and feels good to be able to go home. Patient left ambulatory accompanied by . * Shawnee Kang RN - 11/13/2019 2:19 PM EDT Patient still reporting 5/10 after first round of infusion medications completed. Started with Magnesum sulfate and lidocaine at 375ml/hr again. Neuro checks completed. * Shawnee Kang RN - 11/13/2019 12:52 PM EDT 1L NS infused. Patient complaints of 7/10 pain. Pt complaints of nausea, PO medication given per orders and protocol. magnesum sulfate and lidocaine infusion started at 375ml/hr. Neuro checks completed. Spouse at bedside. Patient resting with call light within reach. * Kati Thompson RN - 11/13/2019 10:00 AM EDT Pt here for SDT migraine transfusion,pain 7/10 to start. pt states she read over protocol, telemetry on, ns bolus infusing. Lab draw for test per order. Pt ordered lunch, resting in bed with lights out. No other c/o, no s/s of distress noted. Spouse at bedside. documented in this encounter Chief Complaint * EVELYN MARION is being seen for an annual follow-up of High heart rate 140- 160 resting. 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 She recently had COVID illness, primarily affecting the lungs, did not need to be hospitalized and noted that resting heart rateswere ranging between 120 and upwards as high as 160. She now has normalized her heart rate in the eighties, as noted today resting heart rate is 88 and after sitting and resting quietly is down to 80beats a minute. * She has no history of arrhythmia other than sinus tachycardia, has a history of thyroid nodule without hyper or hypothyroidism. There is no evidence of syncope or evidence of orthostatic hypotension.She does have a history of migraines and reactive airways details of medications have been reviewed. * I do not believe this is POTS syndrome at this point in time she may have inappropriate sinus tachycardia that could be exacerbated by some of her other medications including albuterol, possibly zolpidem or Zonegran or promethazine. * In any event she is otherwise healthy, will continue to recommend metoprolol and may increase her morning dose to 50 mg as needed, no further testing is warranted. If she has persistent recurrent sinus tachycardia, consideration for referral for inappropriate sinus tachycardia to EP service may be w arranted. Additional Source Comments INFORMATION SOURCE (unrecogn ized section and content) DATE CREATED AUTHOR 03/23/2019 [facility] DATE CREATED AUTHOR AUTHOR'S ORGANIZ ATION 06/23/2019 [facility] DATE CREATED AUTHOR AUTHOR'S ORGANIZ ATION 06/05/2021 [facility] DATE CREATED AUTHOR AUTHOR'S ORGANIZ ATION 09/17/2021 [facility] DATE CREATED AUTHOR AUTHOR'S ORGANIZ ATION 11/08/2021 [facility] Specialist DATE CREATED AUTHOR AUTHOR'S ORGANIZ ATION 04/13/2022 [facility] DATE CREATED AUTHOR AUTHOR'S ORGANIZ ATION 06/20/2022 [facility] DATE CREATED AUTHOR AUTHOR'S ORGANIZ ATION 06/06/2023 [facility] dical Specialists EPIC Reason for Visit (unrecogniz ed section and content) Status Reason Specialty Diagnoses / Procedures Referred By Contact Referred To Contact Authorized Infusion / Infusion Therapy Diagnoses Migraine, unspecified, intractable, without status migrainosus Procedures ND INJ MAGNESIUM SULFATE ND DEXAMETHASONE SODIUM PHOS ND DRUGS UNCLASSIFIED INJECTION Keisha Hurt MD [address] [place] [address] [facility] [address] [place] [address] Care Teams (unrecognized sec tion and content) Force Dispatcher Relationship Specialty Start Date End Date Sol Gibbs MD PCP - General 05/02/12 FOR RECORDS PERTAINING TO PATIENTS WHO ARE OR HAVE BEEN ENROLLED IN A CHEMICAL DEPENDENCY/SUBSTANCEABUSE PROGRAM, SOME INFORMATION MAY BE OMITTED. This clinical summary was aggregated from multiple sources. Caution should be exercised in using it in the provision of clinical care. This summary normalizes information from multiple sources, and as a consequence, information in this document may materially change the coding, format and clinical context of patient data. In addition, data may be omitted in some cases. CLINICAL DECISIONS SHOULD BE BASED ON THE PRIMARY CLINICAL RECORDS. [employer] [facility]. provides no warranty or guarantee of the accuracy or completeness of information in this document.
[2023-06-08 11:41] LABS: Amnisure POSITIVE (NEGATIVE)
--- NOTE | 2023-06-08 13:05 | PM.OBHP ---
OB - H&P: HPI History of Present Illness Chief complaint: OBSERVATION : 1 Para: 0 Gestational age based on last menstrual period: 37.6 Comments: patient has SROM at approximately 0930 this morning. Nitrazine negative in my office, pooling noted with speculum exam. Sent patient to unit for amni sure. RN calls me in my office and states the amni sure is positive for ROM. Admit with routine orders and pitocin augmentation History of Present Dating criteria: LMP confirmed by 1st trimester US care: good care Ultrasounds: normal 1st trimester US and normal mid trimester US complications comment: rupture of membranes at 37w6d Medical complications OB: other (history of migraines) Labs Blood type: A (+) positive Rubella: immune RPR/VDLR: nonreactive GBS status: negative HBsAG: negative Review of Systems ROS Status of ROS: 10 or more systems reviewed and unremarkable except as noted in history and below PFSH PFSH Social History Smoking status: Never smoker Meds Home Medications and Allergies Home Medications Medication Instructions Recorded Confirmed Type VITAMINS 1 tab PO DAILY 02/13/23 04/30/23 History buspirone 10 mg tablet mg 02/13/23 History huuasefoow-glbpyjtjugarj-wojtxdzw tab 02/13/23 History 50 mg-325 mg-40 mg tablet magnesium 400 mg PO DAILY 02/13/23 06/08/23 History sertraline 100 mg tablet 150 mg PO Q24H 02/13/23 04/30/23 History metoclopramide HCl 10 mg tablet 10 mg PO Q6H PRN headache #30 tabs 02/14/23 04/30/23 Rx (Reglan) docusate sodium 100 mg capsule 100 mg PO DAILY 04/30/23 06/08/23 History (Col-Rite) ferrous sulfate 325 mg (65 mg 325 mg PO BID 04/30/23 06/08/23 History iron) tablet (FeroSul) sertraline 150 mg capsule 150 mg PO Q24H 06/08/23 06/08/23 History Allergies Allergy/AdvReac Type Severity Reaction Status Date / Time sumatriptan Allergy Severe Chest Pain Verified 02/13/23 22:17 topiramate [From Topamax] Allergy Severe Hallucinati Verified 02/13/23 22:17 ng Exam Constitutional Vital Signs, click to edit/add: Last Vital Signs Pulse 78 06/08/23 12:34 BP 132/74 06/08/23 12:34 Common normals: no apparent distress and oriented x3 Orientation/consciousness: Yes awake, Yes oriented to person, Yes oriented to place and Yes oriented to time HENMT Common normals: normocephalic Eye Common normals: EOMs intact bilaterally General eye: normal appearance of both eyes Neck & C-Spine Common normals: full ROM and no lymphadenopathy General: normal visual inspection Lymph Lymphatic: no lymphadenopathy noted Chest Common normals: inspection of chest normal Respiratory Common normals: normal respiratory effort Cardio Common normals: regular rate and regular rhythm GI Common normals: Normal to inspection, nondistended, normoactive bowel sounds present Common normals: no CVA tenderness Back & Pelvis Common normals: no CVA tenderness General back: CVA tenderness Extremity Common normals: normal to inspection and full ROM Neuro Common normals: oriented x3 Psych Common normals: mental status grossly normal, thought process normal, cooperative, affect normal and speech normal OB - A/P Assessment and Plan (1) Term : Plan admit to labor and delivery. routine orders and pitocin augmentation
[2023-06-08 14:18] LABS: Hematocrit 37.2 % (36.0-48.0); Hemoglobin 11.9 g/dL (12.0-16.0); Mean Corpuscular Hemoglobin 29.1 pg (26.7-34.0); Platelet Count 261 10^3/uL (150-450); Red Blood Count 4.09 10^6/uL (4.20-5.40); Red Cell Distribution Width 14.2 % (11.0-15.0); White Blood Count 11.7 10^3/uL (4.0-11.0)
[2023-06-08 14:25] LABS: Amphetamine Screen Urine NEGATIVE (NEGATIVE); Barbiturates Screen Urine NEGATIVE (NEGATIVE); Benzodiazepines Screen Urine NEGATIVE (NEGATIVE); Buprenorphine Screen Urine NEGATIVE (NEGATIVE); Cannabinoid Screen Urine NEGATIVE (NEGATIVE); Cocaine Screen Urine NEGATIVE (NEGATIVE); Methadone Screen Urine NEGATIVE (NEGATIVE); Methamphetamines Screen Urine NEGATIVE (NEGATIVE); Opiate Screen Urine NEGATIVE (NEGATIVE); Oxycodone Screen Urine NEGATIVE (NEGATIVE); Phencyclidine Screen Urine NEGATIVE (NEGATIVE); Tricyclic Antidepressant Urine NEGATIVE (NEGATIVE)
[2023-06-08] MEDS: 0.9 % SODIUM CHLORIDE 1,000 ML 125 ML IV (15:10)
[2023-06-08] MEDS: OXYTOCIN/0.9 % SODIUM CHLORIDE 10 UNITS/500 ML PLAST..BAG 6 UNIT IV (15:10)
[2023-06-08] MEDS: LACTATED RINGER'S SOLUTION 1,000 ML 1000 ML IV (21:50)
[2023-06-08] MEDS: CEFAZOLIN SODIUM/DEXTROSE,ISO 2 GM/50 ML PIGGYBACK IV (22:18)
[2023-06-08] MEDS: CITRIC ACID/SODIUM CITRATE 30 ML SOLUTION ORACIT SHOHL'S SOLN PO (22:20)
[2023-06-08] MEDS: FAMOTIDINE/PF 20 MG/2 ML VIAL IV (22:20)
[2023-06-08] MEDS: METOCLOPRAMIDE HCL 10 MG/2 ML VIAL IVP (22:20)
[2023-06-08] MEDS: LACTATED RINGER'S SOLUTION 1,000 ML 50 ML IV (22:57)
--- NOTE | 2023-06-08 23:19 | PM.ONB ---
Brief Operative Note Date of procedure: 06/08/23 Pre-op diagnosis: iup at 37 5/7wks, cpd, srom Post-op diagnosis: same as pre-op Procedure: NAME OF PROCEDURE: [ section ] PROCEDURE: Patient was taken back to the Operating Room where she was given a spinal anesthesia with Duramorph without difficulty. She was prepped and draped in the normal sterile fashion. A Pfannenstiel skin incision was then made 2 cm above the symphysis pubis and carried down to underlying rectus fascia using a Bovie. The fascia was incised in the midline and extended laterally using Parker scissors. Two Mckenna clamps were placed on the superior aspect of the fascia and dissected off the underlying rectus muscles. The same was performed on the inferior aspect as well. The muscles were then in the midline. Peritoneum was identified and entered bluntly. The peritoneum was then extended superiorly and inferiorly with good visualization of the bladder. The bladder blade was inserted. A low transverse incision was made on the patient's uterus and extended laterally digitally. The infant was then delivered atraumatically after the bladder blade was removed in the cephalic position. The cord was clamped and cut. Cord blood was obtained. The infant was handed off to awaiting team. The patient's placenta was spontaneously delivered. The uterus was then exteriorized. The uterus was cleared of all clots and debris. The bladder blade was reinserted. The patient's uterine incision was closed using #0 Vicryl in a running lock fashion. Excellent hemostasis was assured. The uterus was then returned to the patient's abdomen. The patient's abdomen was copiously irrigated using warm saline. Peritoneal gutters were cleared of all clots and debris. Again excellent hemostasis was assured. The patient's peritoneum was closed using 3-0 Vicryl in a running fashion. The patient's fascia was closed using #0 Vicryl in a running fashion. The patient's skin was closed using 4-0 Vicryl subcuticularly. The patient tolerated the procedure well. Sponge, lap, and needle counts were correct x2. The patient was taken to the Recovery Room in stable condition. Anesthesia: spinal Surgeon: Holger Hollingsworth [employer] Skilled Maintenance Supervisor: NICK HILTON Estimated blood loss (mL): 575 Pathology: none sent Condition: stable Disposition: PACU
--- NOTE | 2023-06-08 23:21 | PM.OBPRCCS ---
Procedure Pre-op/Post-op diagnoses: Pre-Op/Post-Op Diagnoses Operation Date: 06/08/23 22:00 <No data on this case meets the specified criteria> Procedure: Procedures Operation Date: 06/08/23 22:00 Actual Procedure Side Surgeon p Not Applicable Holger Hollingsworth DO Hand Sander: NICK HILTON Estimated blood loss (mL): 575 Disposition: PACU Anesthesia type: Spinal
[2023-06-08] MEDS: BUPIVACAINE LIPOSOME/PF 266 MG/13.3 ML VIAL INJ (23:40)
[2023-06-08] MEDS: BUPIVACAINE HCL 0.5% PF 50 MG/10 ML VIAL INJ (23:40)
[2023-06-08] MEDS: 0.9 % SODIUM CHLORIDE 10 ML VIAL 30 ML INJ (23:40)
--- NOTE | 2023-06-08 23:40 | PM.EN ---
Event Note Event Note: Client Services Specialist Note: I first assisted Dr Hollingsworth with primary section. I first assisted as directed by physician. I then independently closed the incision with 4-0 vicryl on a jose l needle. Hemostasis noted at closure. Patient tolerated procedure well.
[2023-06-09] VITALS (34 sets, daily range): BP systolic 89–123; BP diastolic 44–70; PULSE 67–87; RESP 10–27; TEMP 36.2–37.2; O2SAT 96–99
[2023-06-09] MEDS: OXYTOCIN/0.9 % SODIUM CHLORIDE 20 UNITS/1,000 ML PLAST..BAG 125 UNIT IV
[2023-06-09] MEDS: ACETAMINOPHEN 500 MG TABLET 1000 MG PO ×3 (02:23→19:21)
[2023-06-09] MEDS: KETOROLAC TROMETHAMINE 30 MG/ML VIAL IVP ×4 (02:24→21:59)
[2023-06-09 06:10] LABS: Basophils Percent Auto 0.2 % (0.2-2.0); Hematocrit 25.9 % (36.0-48.0); Hemoglobin 8.4 g/dL (12.0-16.0); Immature Granulocytes Abs Auto 0.14 10^3/uL (0.00-0.03); Immature Granulocytes Pct Auto 0.8 % (0.0-0.5); Lymphocytes Absolute Auto 1.2 10^3/uL (1.2-3.8); Lymphocytes Percent Auto 6.7 % (20.5-60.0); Mean Corpuscular HGB Conc 32.4 g/dL (29.9-35.2); Mean Corpuscular Hemoglobin 29.5 pg (26.7-34.0); Mean Corpuscular Volume 90.9 fL (81.0-99.0); Mean Platelet Volume 10.2 fL (9.5-13.5); Monocytes Absolute Auto 1.4 10^3/uL (0.3-0.8); Monocytes Percent Auto 7.8 % (1.7-12.0); Neutrophils Percent Auto 84.5 % (43.0-75.0); Platelet Count 211 10^3/uL (150-450); Red Blood Count 2.85 10^6/uL (4.20-5.40); Red Cell Distribution Width 13.9 % (11.0-15.0); White Blood Count 17.7 10^3/uL (4.0-11.0)
[2023-06-09] MEDS: CEFAZOLIN SODIUM/DEXTROSE,ISO 2 GM/50 ML PIGGYBACK IV (06:30)
--- NOTE | 2023-06-09 07:52 | W.PC.ACHO ---
Registration Status: ADM IN Primary Language: Malian Preferred Language: Malian Active Medications Generic Name Dose Route Start Last Admin Trade Name Freq PRN Reason Stop Dose Admin Acetaminophen 1,000 mg 06/09/23 01:00 06/09/23 02:23 Acetaminophen 500 Mg Tablet PO 1,000 mg Q8H CHIVO Administration Al Hydroxide/Mg Hydroxide 2,400 mg 06/08/23 23:54 Magnesium Hydroxide 2,400 Mg/10 Ml Oral.Susp PO Q6H PRN Dyspepsia Carboprost Tromethamine 250 mcg 06/08/23 13:54 Carboprost Tromethamine 250 Mcg/Ml 1 Ml Vial IM 06/10/23 13:54 Q15M PRN Bleeding Diphenhydramine HCl 25 mg 06/08/23 23:54 Diphenhydramine Hcl 50 Mg/Ml (1ml) Vial IV 06/09/23 23:57 Q6H PRN Itching Diphtheria/Pertussis/Tetanus Vacc 0.5 ml 06/09/23 08:00 Adacel Diph,Pertuss(Acell),Tet Vac/Pf 0.5 Ml Adult Syringe IM 06/09/23 08:01 .ONCE ONE Docusate Sodium 100 mg 06/09/23 09:00 Docusate Sodium 100 Mg Capsule PO BID CHIVO Enoxaparin Sodium 40 mg 06/10/23 10:00 Enoxaparin Sodium 40 Mg/0.4 Ml Syringe SUBQ 1000 CHIVO Ephedrine Sulfate 5 mg 06/08/23 16:42 Ephedrine Sulfate 50 Mg/Ml Vial IV 06/09/23 16:43 Q5M PRN Blood Pressure - Low Fentanyl Citrate 100 mcg 06/08/23 16:42 Fentanyl Citrate/Pf 100 Mcg/2 Ml Vial EPIDURAL ONCE PRN epidural Fentanyl Citrate 100 mcg 06/08/23 16:42 Fentanyl Citrate/Pf 100 Mcg/2 Ml Vial EPIDURAL ONCE PRN epidural Oxytocin/Sodium Chloride 10 units in 500 mls @ 6 mls/hr 06/08/23 13:30 06/08/23 17:50 Pitocin 10 Unit/500 Ml-Ns IV 12 milliunit/min CONT CHIVO 36 mls/hr Infusion Protocol 2 MILLIUNIT/MIN Sodium Chloride 1,000 mls @ 125 mls/hr 06/08/23 15:00 06/08/23 22:20 Sodium Chloride 0.9% 1,000 Ml IV 0 mls/hr .Q8H CHIVO Infusion Ropivacaine/Sodium Chloride 400 mg in 200 mls @ 6 mls/hr 06/08/23 17:00 Naropin 0.2% 400 Mg/200 Ml Bag EPIDURAL Q24H CHIVO Lactated Ringer's 1,000 mls @ 50 mls/hr 06/08/23 23:45 06/08/23 22:57 Lactated Ringers IV 50 mls/hr .Q20H CHIVO Administration Lactated Ringer's 1,000 mls @ 125 mls/hr 06/08/23 23:45 Lactated Ringers IV .Q8H CHIVO Ibuprofen 800 mg 06/09/23 21:00 Ibuprofen 400 Mg Tablet PO Q8H PRN Pain Ketorolac Tromethamine 30 mg 06/08/23 23:45 06/09/23 02:24 Ketorolac Tromethamine 30 Mg/Ml Vial IVP 06/10/23 23:46 30 mg Q6H CHIVO Administration Lidocaine 5 ml 06/08/23 16:42 Lidocaine Hcl 2% Pf 100 Mg/5 Ml Vial INJ 06/09/23 16:43 Q1H PRN epidural placement Measles/Mumps/Rubella Vaccine Live 0.5 ml 06/09/23 08:00 Measles,Mumps,Rubella Vacc/Pf 0.5 Ml Vial SQ 06/09/23 08:01 .ONCE ONE Methylergonovine Maleate 0.2 mg 06/08/23 13:54 Methylergonovine Maleate 0.2 Mg/Ml Ampule IM 06/10/23 13:54 ONCE PRN Uterine Contractility/Contract Methylergonovine Maleate 0.2 mg 06/08/23 13:54 Methylergonovine Maleate 0.2 Mg Tablet PO 06/10/23 13:54 Q4H PRN Uterine Contractility/Contract Misoprostol 600 mcg 06/08/23 13:54 Misoprostol 100 Mcg Tablet PO 06/10/23 13:54 ONCE PRN Uterine Bleeding Misoprostol 800 mcg 06/08/23 13:54 Misoprostol 100 Mcg Tablet SL 06/10/23 13:54 ONCE PRN Uterine Bleeding Misoprostol 1,000 mcg 06/08/23 15:00 Misoprostol 100 Mcg Tablet VA 06/10/23 15:01 ONCE PRN Uterine Bleeding Naloxone HCl 0.4 mg 06/08/23 16:42 Naloxone Hcl 0.4 Mg/Ml Vial IV 06/09/23 16:43 ONCE PRN resp depression Ondansetron HCl 4 mg 06/08/23 23:54 Ondansetron Pf 4 Mg/2 Ml Vial IV Q6H PRN Nausea And Vomiting Ondansetron HCl 8 mg 06/08/23 23:54 Ondansetron 4 Mg Rapdis Tablet PO Q6H PRN Nausea And Vomiting Oxytocin 10 unit 06/08/23 15:00 Oxytocin 10 Unit/Ml Vial IM 06/10/23 15:01 ONCE PRN excessive bleeding Senna 17.2 mg 06/08/23 20:00 Sennosides 8.6 Mg Tablet PO QHS PRN Constipation Simethicone 80 mg 06/08/23 23:54 Simethicone 80 Mg Tab.Chew PO QID PRN Abdominal Distention Varicella Virus Vaccine Live 0.5 ml 06/09/23 08:00 Varicella Vaccine Live/Pf 0.5 Ml Vial SUBQ 06/09/23 08:01 .ONCE ONE Diet Category Date Time Status Regular Consistency Diet Diet 06/08/23 23:51 Active IV Insertion/Site Date of IV Line Insertion [ 06/08/23 Short PIV (<1.75 in) 20g left Hand] IV Insertion Time [Short PIV ( 12:20 <1.75 in) 20g left Hand] Neurology Patient orientation (short person,place,time,situation list) Respiratory Pulse Oximetry 97 Pulse Oximetry 97 Pulse Oximetry 96 Pulse Oximetry 97 Pulse Oximetry 96 Pulse Oximetry 96 Pulse Oximetry 98 Pulse Oximetry 98 Pulse Oximetry 98 Pulse Oximetry 99 Pulse Oximetry 98 Pulse Oximetry 98 Pulse Oximetry 99 Pulse Oximetry 99 Pulse Oximetry 99 Pulse Oximetry 96 Pulse Oximetry 99 Pulse Oximetry 96 Pulse Oximetry 97 Pulse Oximetry 98 Pulse Oximetry 99 Pulse Oximetry 97 Pulse Oximetry 98 Pulse Oximetry 98 Pulse Oximetry 98 Oxygen Delivery Method Room Air Oxygen Delivery Method Room Air Oxygen Delivery Method Room Air Oxygen Delivery Method Room Air Oxygen Delivery Method Room Air Oxygen Delivery Method Room Air Cardiology Heart Sounds Strong,Regular Heart Sounds Strong,Regular Catheter Urinary Catheter Date of 06/08/23 Insertion [Urethral]
[2023-06-09] MEDS: DOCUSATE SODIUM 100 MG CAPSULE PO ×2 (09:23→21:59)
[2023-06-09] MEDS: ENOXAPARIN SODIUM 40 MG/0.4 ML SYRINGE SUBQ (21:59)
[2023-06-10] VITALS (7 sets, daily range): BP systolic 120–127; BP diastolic 58–63; PULSE 85–98; RESP 16; TEMP 36.6–38; O2SAT 97
[2023-06-10] MEDS: ACETAMINOPHEN 500 MG TABLET 1000 MG PO ×2 (03:18→15:26)
[2023-06-10] MEDS: KETOROLAC TROMETHAMINE 30 MG/ML VIAL IVP ×3 (05:11→16:46)
[2023-06-10] MEDS: DOCUSATE SODIUM 100 MG CAPSULE PO ×2 (10:41→22:28)
--- NOTE | 2023-06-10 11:35 | P.OBPN_ITS ---
OB - PN: Subj Subjective Patient comments: no complaints, pain well controlled and tolerating diet status: doing well and well [place] feeding status: exclusively Exam Constitutional Vital Signs, click to edit/add: Last Vital Signs Temp 97.6 F 06/09/23 22:08 Pulse 98 H 06/10/23 10:37 Resp 16 06/09/23 15:32 BP 120/58 06/10/23 10:37 Pulse Ox 97 06/09/23 01:50 O2 Del Method Room Air 06/09/23 22:10 Documenting provider has reviewed patient's vital signs: yes Common normals: no apparent distress, healthy appearing and alert Orientation/consciousness: Yes awake, Yes oriented to person, Yes oriented to place and Yes oriented to time HENMT Common normals: normocephalic and head/scalp atraumatic Eye Pupil: PERRL and accommodation reflex normal Neck & C-Spine Common normals: full ROM and supple Chest Common normals: inspection of chest normal Respiratory Common normals: normal respiratory effort Cardio Common normals: regular rate and regular rhythm GI Common normals: Normal to inspection, nondistended, normoactive bowel sounds present and soft to palpation Common normals: no CVA tenderness Back & Pelvis Common normals: thoracic and lumbar spine normal to inspection and no thoracic nor lumbar tenderness Extremity Common normals: normal to inspection, full ROM and no calf tenderness Neuro Common normals: oriented x3, CN's II-XII intact bilaterally, moves all extremities, no focal motor deficits and no sensory deficits noted Psych Common normals: mental status grossly normal, thought process normal, cooperative, affect normal and speech normal Urinary Catheter Management Urinary Catheter Management Urethral: Cath placed during this visit: yes, but has since been removed by the nurse Insertion date: 06/08/23 Removal date: 06/09/23 Removal time: 10:30 OB - PN: A/P Assessment and Plan (1) Term : Assessment and Plan: delivered by CS due to failure to descend s/p SROM and pitocin augmentation. labs and vital signs reviewed. voicing no complaints. exclusively breast feeding. ambulating and eliminating normally. Plan routine post CS care Plan - day: 2 Plan: routine postop care Time Spent with Patient Time: Total time spent is greater than 50% in coordination of care (as documented) at patient's floor/unit and/or counseling patient: Total time spent with greater than 50% in coordination of care (as documented) at patient's floor/unit and/or counseling patient: less than 15 minutes
[2023-06-10] MEDS: IBUPROFEN 400 MG TABLET 800 MG PO (22:27)
[2023-06-10] MEDS: ENOXAPARIN SODIUM 40 MG/0.4 ML SYRINGE SUBQ (22:28)
[2023-06-11] MEDS: ACETAMINOPHEN 500 MG TABLET 1000 MG PO (01:11)
[2023-06-11 08:20] VITALS: BP 125/58; PULSE 77; RESP 16; TEMP 37.5
[2023-06-11] MEDS: DOCUSATE SODIUM 100 MG CAPSULE PO (08:22)
[2023-06-11] MEDS: IBUPROFEN 400 MG TABLET 800 MG PO (08:22)
[2023-06-11 08:24] VITALS: BP 125/58; PULSE 77
--- NOTE | 2023-06-11 12:42 | P.DS_ITS ---
DS: Providers Provider Date of admission: 06/08/23 11:50 Primary care physician: JAQUELINE GIBBS Admitting clinician: Holger Hollingsworth Discharging clinician: Cee العراقي Anticipated date of discharge: 06/11/23 DS: Diagnosis Discharge Diagnosis (1) Term : Assessment and plan: delivered by primary CS (2) Delivery by section: Assessment and plan: no surgical or complications, requesting discharge, started iron sulfate 325 mg PO BID for one month, needs to dring 10 eight ounce glasses of water a day while breast feeding, instructions given for discharge and voiced no questions Plan discharge home OB - DS: Summary Hospital Course Hospital Course: uncomplicated Time spent discussing smoking cessation with patient: 3 to 10 minutes Peripartum Data - Procedures: Procedures Operation Date: 06/08/23 22:00 Actual Procedure Side Surgeon p Not Applicable Holger Hollingsworth DO Peripartum Data - Vaginal Delivery Procedures: Procedures Operation Date: 06/08/23 22:00 Actual Procedure Side Surgeon p Not Applicable Holger Hollingsworth DO Complications complications: none Infant Delivery method: section Gender: male Discharge plan: home Status at Discharge Cognitive/behavioral status at discharge: wnl Functional status at discharge: independent ambulation Overall status at discharge: patient is back to baseline Time Spent with Patient Time attestation: Total time spent providing and/or coordinating discharge services: Time spent: less than 30 minutes Exam Narrative Exam Narrative: voicing no complaints Constitutional Vital Signs, click to edit/add: Last Vital Signs Temp 99.5 F 06/11/23 08:20 Pulse 77 06/11/23 08:24 Resp 16 06/11/23 08:20 BP 125/58 06/11/23 08:24 Pulse Ox 97 06/10/23 16:19 O2 Del Method Room Air 06/11/23 08:20 Documenting provider has reviewed patient's vital signs: yes Common normals: no apparent distress, oriented x3, no limitations, alert and we ll nourished HENMT Common normals: normocephalic and head/scalp atraumatic Eye Pupil: PERRL and accommodation reflex normal Neck & C-Spine Common normals: full ROM and supple Chest Common normals: inspection of chest normal Respiratory Common normals: normal respiratory effort Cardio Common normals: regular rate and regular rhythm GI Common normals: Normal to inspection, nondistended, normoactive bowel sounds present, soft to palpation and non-tender Common normals: no CVA tenderness Back & Pelvis Common normals: thoracic and lumbar spine normal to inspection and no thoracic nor lumbar tenderness Extremity Common normals: normal to inspection, full ROM and no calf tenderness Neuro Common normals: oriented x3, CN's II-XII intact bilaterally, no focal motor deficits and no sensory deficits noted Psych Common normals: mental status grossly normal, thought process normal, cooperative, affect normal and speech normal Discharge Plan Discharge Disposition: Home, Self-Care Condition: Good Assessment: clinically stable, vss normal, performing ADL's without problem, incision dry and intact, breast feeding witihout problem, has good support at home, anemic but not symptomatic, prescriptions to patient, voicing no questions or concerns Health Concerns: none Plan of Treatment: discharge home s/p primary CS with written and verbal instructions Discharge Medications: Continued sertraline 100 mg tablet 150 mg PO Q24H [id number]-jjkdhjbygwcjh-brtj 50-325-40 mg tablet buspirone 10 mg tablet Hold Instructions: ordered magnesium 400 mg PO DAILY Rx Instructions: 400MG PO DAILY AT HS VITAMINS 1 tab PO DAILY Rx Instructions: 1 TAB DAILY metoclopramide HCl [Reglan] 10 mg tablet 10 mg PO Q6H PRN (Reason: headache) Qty: 30 0RF ferrous sulfate [FeroSul] 325 mg (65 mg iron) tablet 325 mg PO BID docusate sodium [Col-Rite] 100 mg capsule 100 mg PO DAILY Hold Instructions: ordered sertraline 150 mg capsule 150 mg PO Q24H Activity: resume usual activities as tolerated Activity Detail: may shower, no bathtub for six weeks, no sex six weeks, only lift baby, no driving 4 weeks, minimum of 10 eight ounce glasses of water a day, call for problem or concern, make a exam appointment in six weeks, baby to peds within one week Diet: regular diet Patient Instructions: (DC) Activity Restrictions/Additional Instructions: as stated above Forms: Portal Instructions Follow Up Appointments: post exam appointment in six weeks, incision check in one week with Dr. Hollingsworth Discharge location: home
== END 2023-06-11 13:50 | disposition home or self-care (01) | DRG 788 ==
PROVIDERS: Obstetrics & Gynecology; Admitting Provider Midwife; PCP Family Medicine; Visit Provider Midwife
PROC: 10D00Z1 Extraction of Products of Conception, Low, Open Approach (ICD-10-PCS; CPT 59514; principal; 2023-06-08 22:00)
DX: O42.013 Preterm premature rupture of membranes, onset of labor within 24 hours of rupture, third trimester (principal); O33.9 Maternal care for disproportion, unspecified; Z3A.37 37 weeks gestation of pregnancy; Z37.0 Single live birth; O32.4XX0 Maternal care for high head at term, not applicable or unspecified; Z86.16 Personal history of COVID-19
CPT/HCPCS: 36415; 59050; 64488; 80307; 84112; 85025; 85027; 86850; 86900; 86901; 88307; 96372; 96374; 96375; 96376; J0131; J0665; J0690; J1100; J1650; J1885; J2274; J2371; J2405; J2590; J2765

== ENCOUNTER 2023-06-14 08:35 | Outpatient (OUT) | payer BC, SELFPAY ==
--- OUTSIDE RECORDS SUMMARY | 2023-06-14 08:40 | XMS_ITS | CCD ---
Author Name Unknown Address [id number] [place] [address] Organization [facility] Care Team Providers Care Shellfish Sorter Name Role Phone Sol Gibbs Primary Care Provider [phone] Sol Gibbs Unavailable Unavailable Unavailable Sol Gibbs MD Primary Care Provider SOL GIBBS Primary Care Unavailable KEISHA SOMERS Referring Unavailable SOL GIBBS Primary Care Unavailable SIMI BARBOZA Attending Unavailable MD Sol Gibbs Primary Care Provider STEFFANY Ferrell Attending Provider Sol Gibbs Primary Care Unavailable Nick Ferrell Attending Unavailable Jocelin Ferrellerie Bettye Admitting Unavailable SOL GIBBS Attending Unavailable GHASSAN NICK Bettye Attending Unavailable FLOROJOCELINNICK Bettye Attending Unavailable FLOROJOCELINNICK Bettye Attending Unavailable FLOROJOCELINNICK Bettye Attending Unavailable FLORO, NICK L Attending Unavailable FLORO NICK L Referring Unavailable GHASSAN NICK Bettye Attending Unavailable Allergies Allergy Classification Reported Allergen(s) Allergy Type Date of Onset Reaction(s) Facility (2 sources) topiramate; Translations: [Topamax] Drug Allergy 1 Other (See Comments) [facility] [employer] [place] [address] DO Work Phone: (1 source) Triptans; Translations: [Triptans] Allergy to drug (finding) Chest Pain, Palpitations [facility] [employer] [place] [address] DO Work Phone: (1 source) SUMAtriptan Drug Allergy 1 Other (See Comments) [facility] (2 sources) topiramate; Translations: [topiramate] Drug Allergy 2 Hallucinating [facility] (2 sources) Mhxooarc-0-PT3 Antimigraine Agents; Translations: [Xpzgnfrn-9-PT4 Antimigraine Agents] Propensity to adverse reactions 2 Chest Pain [facility] Medications Current Medications Medication Drug Class(es) Dates Sig (Normalized) Sig (Original) [id number] 200 actuat albuterol 0.09 mg/actuat metered dose inhaler (2 sources) beta2-Adrenergic Agonist Start: 06-14-2021 take 1 puff(s) by inhalation every four hours Albuterol Sulfate Active 2 PUFF INHALATION Q4H June 14, 2021 12:00am Start: 01-01-2021 Albuterol Sulf ate HFA 108 (90 Base) MCG/ACT Inhalation Aerosol Solution Quantity: 8 Refills: 0 Ordered: 01-Jan-2021 DO Start : 01-Jan-2021 Active cyclobenzaprine hydrochloride 10 mg oral tablet (2 sources) Muscle Relaxant Start: 06-14-2021 take 20 mg by mouth once daily at bedtime Cyclobenzaprine Active 20 MG PO Daily at bedtime June 14, 2021 12:00am Start: 11-12-2020 take 1 tablet by remberto th twice daily Cyclobenzaprine HCl - 10 MG Oral Tablet Take 1 tablet twice daily Quantity: 0 Refills: 0 Ordered: 02-Apr-2021 DO Start : 12-Nov-2020 Active cyproheptadine hydrochloride 4 mg oral tablet (2 sources) Start: 06-14-2021 take 4-8 mg by mouth once daily at bedtime Cyproheptadine Active 4 - 8 MG PO Daily at bedtime June 14, 2021 12:00am Start: 05-21-2021 take 1 tablet by remberto th three times daily Cyproheptadine HCl - 4 MG Oral Tablet TAKE 1 TABLET 3 TIMES DAILY. Quantity: 0 Refills: 0 Ordered: 21-May-2021 DO Start : 21-May-2021 Active 1 ml erenumab-aooe 140 mg/ml auto-injector (1 source) Start: 07-09-2019 inject 140 mg by subcutaneous injection every 30 days Erenumab-Aooe (Aimovig Autoinjector) 140 mg/mL Auto-Injector Active 140 MG SUBCUT Q30D July 09, 2019 12:00am Magnesium (2 sources) Start: 06-14-2021 take 250 mg by mouth once daily Magnesium Active 250 MG PO Daily June 14, 2021 12:00am Magnesium CAPS T JUICE 1 CAPSULE Daily Quantity: 0 Refills: 0 Ordered: 04-Jun-2021 DO Active magnesium sulfate 4 g, lidocaine (cardiac) (XYLOCAINE) 100 mg in sodium chloride 0.9 % 250 mL IVPB (1 source) Start: 11-13-2019 magnesium sulf ate 4 g, lidocaine (cardiac) (XYLOCAINE) 100 mg in sodium chloride 0.9 % 250 mL IVPB 2 ml metoclopramide 5 mg/ml prefilled syringe (2 sources) Dopamine-2 Receptor Antagonist Start: 09-15-2021 metoclopramide (REGL AN) injection 10 mg Start: 11-13-2019 metoclopramide (REGLAN) tablet 10 mg Multivitamin preparation (1 source) Start: 06-14-2021 take 1 tablet by mouth once daily Multivitamin Active 1 TAB PO Daily June 14, 2021 12:00am omeprazole 20 mg delayed release oral capsule (2 sources) Proton Pump Inhibitor Start: 06-22-2012 take 1 capsule by mouth once daily omeprazole (PRILOSEC) 20 MG capsule Indications: Chronic generalized abdominal pain Take 1 capsule by mouth Daily. 30 capsule 3 06/22/2012 Active ondansetron 8 mg disintegrating oral tablet (3 sources) Serotonin-3 Receptor Antagonist Start: 06-14-2021 take 8 mg by mouth every six hours Ondansetron Active 8 MG PO Q6H June 14, 2021 12:00am Start: 08-20-2020 Ondansetron 8 MG Oral Tablet Disintegrating As needed. Quantity: 0 Refills: 0 Ordered: 20-Aug-2020 DO Start : 20-Aug-2020 Active Start: 07-09-2019 End: 06-14-2021 take 1 tablet by mouth every six hours Ondansetron Hcl (Zofran) 4 mg Tablet Discontinued 4 MG PO Q6H July 09, 2019 12:00am Cheri 29th, 2022 7:27pm polyethylene glycol 3350 04011 mg powder for oral solution (2 sources) Osmotic Laxative take 17 g by mouth once daily polyethylene glycol (GLYCOLAX) packet Take 17 g by mouth daily. 0 Active promethazine hydrochloride 25 mg oral tablet (2 sources) Phenothiazine Start: 2 take 25 mg by mouth every twelve hours Promethazine Active 25 MG PO Q12H June 14, 2021 12:00am Start: 04-01-2020 Promethazine H Cl - 25 MG Oral Tablet As needed. Quantity: 0 Refills: 0 Ordered: 19-Jun-2020 DO Start : 01-Apr-2020 Active 1000 ml sodium chloride 9 mg /ml injection (3 sources) Start: 09-15-2021 0.9 % sodium c hloride infusion Start: 11-13-2019 End: 11-13-2019 0.9 % sodium chloride bolus Start: 11-13-2019 0.9 % sodium c hloride infusion ubiquinol 200 mg oral capsule (1 source) Start: 06-14-2021 take 200 mg by mouth once daily Coq10 (Ubiquinol) Active 200 MG PO Daily June 14, 2021 12:00am ubrogepant 50 mg oral tablet (2 sources) Start: 06-14-2021 Ubrogepant (Ub relvy) 50 mg Tablet Active 0 .ROUTE .COMPLEX June 14, 2021 12:00am 50mg at first onset of headache. repeat in 2 hours. max 4 tab weekly. Start: 08-20-2020 take 1 tablet by remberto once daily as needed Ubrelvy 50 MG Oral Tablet TAKE 1 TABLET Daily prn Quantity: 0 Refills: 0 Ordered: 20-Aug-2020 DO Start : 20-Aug-2020 Active zonisamide 100 mg oral capsule (2 sources) Anti-epileptic Agent Start: 06-14-2021 take 100 mg by mouth once daily at bedtime Zonisamide Active 100 MG PO Daily at bedtime June 14, 2021 12:00am Start: 04-02-2020 take 1 capsule by mo [facility] once daily Zonegran 100 MG Oral Capsule TAKE 1 CAPSULE Daily Quantity: 0 Refills: 0 Ordered: 13-Jun-2020 DO Start : 02-Apr-2020 Active Completed/Discontinued Medications Medication Drug Class(es) Dates Sig (Normalized) Sig (Original) dexamethasone (DECADRON) 40 mg in sodium chloride 0.9 % 100 mL IVPB (2 sources) Start: 09-15-2021 End: 09-15-2021 dexamethasone (DECADRON) 40 mg in sodium chloride 0.9 % 100 mL IVPB Start: 11-13-2019 dexamethasone (DECADRON) 40 mg in sodium chloride 0.9 % 100 mL IVPB magnesium sulfate 4,000 mg, lidocaine (cardiac) (XYLOCAINE) 100 mg in sodium chloride 0.9 % 250 mL IVPB (1 source) Start: 09-15-2021 End: 09-15-2021 magnesium sulfate 4,000 mg, lidocaine (cardiac) (XYLOCAINE) 100 mg in sodium chloride 0.9 % 250 mL IVPB metoprolol tartrate 25 mg oral tablet (2 sources) beta-Adrenergic Nancie Start: 07-09-2019 take 1 tablet by mouth twice daily Metoprolol Tartrate 25 MG Oral Tablet TAKE 1 TABLET TWICE DAILY. Quantity: 180 Refills: 3 Ordered: 19-Jun-2020 DO Start : 01-Apr-2020 Active Multi Vitamin TABS (1 source) Multi Vitamin TA BS TAKE 1 TABLET DAILY. Quantity: 0 Refills: 0 Ordered: 04-Jun-2021 DO Active Prednisone (1 source) Start: 07-18-2019 End: 06-14-2021 Prednisone Discontinued 0 .ROUTE .COMPLEX July 18, 2019 12:00am June 14, 2021 7:27pm TAPER DOSE 0.5 ml SUMAtriptan 12 mg/ml auto-injector (1 source) Serotonin-1b and Serotonin-1d Receptor Agonist Start: 07-18-2019 End: 06-14-2021 Sumatriptan Succinate Discontinued 6 MG SUBCUT EVERY 1-4 HOURS July 18, 2019 12:00am June 14, 2021 7:27pm Sumatriptan Succinate (Onzetra Xsail) 11 mg Aerosol Powdr Breath Activated (1 source) Start: 07-09-2019 End: 06-14-2021 Sumatriptan Succinate (Onzetra Xsail) 11 mg Aerosol Powdr Breath Activated Discontinued 11 MG INTRANASAL EVERY 2-6 HOURS July 09, 2019 12:00am June 14, 2021 7:27pm ubidecarenone 200 mg oral capsule (1 source) Co Q-10 200 MG O ral Capsule TAKE DIRECTED. Quantity: 0 Refills: 0 Ordered: 04-Jun-2021 DO Active 5 ml valproic acid 100 mg/ml injection (2 sources) Mood Stabilizer, Anti-epileptic Agent Start: 09-15-2021 End: 09-15-2021 valproate (DEPACON) injection 1,090 mg Start: 11-13-2019 valproate (DEP ACON) injection 2,000 mg zolpidem tartrate 10 mg oral tablet (2 sources) gamma-Aminobutyric Acid-ergic Agonist Start: 07-18-2019 take 1 tablet by mouth at bedtime as needed Zolpidem Tartrate 10 MG Oral Tablet TAKE 1 TABLET AT BEDTIME NEEDED. Quantity: 0 Refills: 0 Ordered: 01-Apr-2021 DO Start : 01-Apr-2021 Active Problems Active Problems Problem Classification Problem Date Documented Date Episodic/Chronic Cardiac dysrhythmias (4 sources) Palpitations; Translations: [Palpitations] 04-28-2023 Episodic Headache; including migraine (4 sources) Migraine without aura, not refractory ; [...] [Other specified hypothyroidism] Onset: 06-22-2012 06-22-2012 Chronic Viral infection (1 source) Disease caused by [...] Test Name Value Interpretation Reference Range Facility Joey 06-09-2023 L Specimen: [id number] Re ceived: 06/09/23 Status: SOUPaul Req Num: [id number] Spec Type: Surgical Subm Dr: Holger Hollingsworth Tissues: A Placenta - 3rd Trimester (Greater than 28 weeks) (PLACENTA) Procedures: HE/5, Gross/Micro L5 Age/ Patient Sex Location Account Attending Physician Evelyn Gaytan 28/F [facility] [id number] Nick Wen Ghassan, DEPUTY CHIEF EXECUTIVE SPEC NUM: [id number] RECD: 06/09/23 STATUS: SOUT REQ NUM: [id number] MANUEL: 06/08/[address]: Holger Hollingsworth ENTERED: 06/09/[address] [facility] [address]: Clay,Lab SPEC TYPE: Surgical DEPT: FAWN SINGH ORDERED: HE/5, Gross/Micro L5 ORDERED: HE/5, Gross/Micro L5 Pathological Diagnosis Placenta, With:? Umbilical Cord: Three Vessel Cord, Unremarkable. Membranes: Unremarkable. Placenta: Mature Chorionic Villi, Consistent With Third Trimester Placenta. Foci of Parenchymal Necrosis Are Identified. Clinical Information Arrest of descent, delivery at 37 weeks 6 days, early rupture, 6/8 Gross Description Received in formalin labeled with the patient's name, date of and placenta is a 16.5 x 15 cm holt placenta which following fixation and after removal of the membranes and umbilical cord is 480 g. The membranes are glistening, pink-ornelas and translucent. The surface is glistening blue-huber. The attached 18.5 cm long by 1.3 cm average diameter segment of three-vessel umbilical cord is centrally inserted 6 cm from the edge of the placental disc. The maternal surface is disrupted, but appears complete. Sectioning demonstrates soft red-brown parenchyma averaging 2.5 cm in thickness with a small number of well-demarcated pink-ornelas slightly firm lamellated lesions up to 1.2 cm in greatest dimension and together compromising less than 1% of the overall parenchymal volume. [employer] Adjuster sections are submitted in 5 cassettes as follows: A1 - membranes, umbilical cord, and decidua basalis A2 - Central placenta, full-thickness, grossly unremarkable A3-A4 - 2 separate areas of well-demarcated lesions, central placenta, partial thickness ----- Specimen: [id number] Received: 06/09/23 Status: RIGOBERTO Gómez Num: [id number] Spec Type: Surgical Subm Dr: Holger Hollingsworth Tissues: A Placenta - 3rd Trimester (Greater than 28 weeks) (PLACENTA) Procedures: , Gross/Micro L5 ----- Patient: Evelyn Gaytan [id number] (Continued) ----- Specimen: [id number] Received: 06/09/23 (Continued) Gross Description (Continued) Signed (signature on file) Torito Fields MD 06/10/23 2239 ----- Specimen: [id number] Received: 06/09/23 Status: RIGOBERTO Gómez Num: [id number] Spec Type: Surgical Subm Dr: Holger Hollingsworth Tissues: A Placenta - 3rd Trimester (Greater than 28 weeks) (PLACENTA) Procedures: HE/5, Gross/Micro L5 ----- Patient: Evelyn Gaytan [id number] (Continued) ----- Specimen: [id number] Received: 06/09/23 (Continued) Gross Description (Continued) A5 - Peripheral placenta, full-thickness CPT Codes 95416 ----- ----- Specimen: [id number] Received: 06/09/23 Status: RIGOBERTO Gómez Num: [id number] Spec Type: Surgical Subm Dr: Holger Hollingsworth Tissues: A Placenta - 3rd Trimester (Greater than 28 weeks) (PLACENTA) Procedures: HE/5, Gross/Micro L5 ----- Patient: Evelyn Gaytan [id number] (Continued) ----- Signed (signature on file) Torito Fields MD 06/10/23 2565 [facility] US OB FOLLOW UP TRANSABDOMIN AL APPROACHon 04-13-2023 US OB FOLLOW UP TRANSABDOMINAL APPROACH FINDINGS: Single [...] by Mike Tyson on 11/07/2021 1227 Normal [facility] HCG, SERUM, QUALITATIVEon hCG Qual Negative [facility] Serum HCG Qualitativeon Serum HCG Qualitative Negative Normal [facility] Comment on above: Performed By: #### S HCG #### [facility] [address] [facility] [address] Q - TSH and T4,FREEon 2021 Free T4 [Mass/Vol] 1.2 ng/dL Normal 0.8-1.8 [facility] Medication Tech Comment on above: Order Comment: [facility] Testing performed at: [facility], [address] [place] [address], [address] [place] [address], [id number], Gallery Host: Devaughn Omalley MD [facility] Collection Date/Time: [facility] Results Received Date/Time: [facility] Reported Date/Time: Performed By: #### 3 [id number] #### [facility] Default [address] [place] [address] TSH Qn 1.51 m[IU]/L Normal [facility] Comment on above: Order Comment: [facility] Testing performed at: [facility], [address], [address] [place] [address], [id number], Gallery Host: Devaughn Omalley MD [facility] Collection Date/Time: [facility] Results Received Date/Time: [facility] Reported Date/Time: Result Comment: Refe renjuan pablo Range > or = 20 Years 0.40-4.50 Ranges First trimester 0.26-2.66 Second trimester 0.55-2.73 Third trimester 0.43-2.91 Performed By: #### 3 128 #### [facility] [address] [place] [address] Office Visit (Cardiology)on 06-04-2021 Follow-up visit Diagnoses/Problems Assessed Dyspnea on minimal exertion (786.09) (R06.00) Sinus tachycardia (427.89) (R00.0) COVID-19 (079.89) (U07.1) Body mass index (BMI) of 21.0 to 21.9 in adult (V85.1) (Z68.21) Patient Instructions By signing my name below, I, Sam Oh LPNScribe, attest that this documentation has been prepared under the direction and in the presence of Dr. Franc Escobedo DO. All medical record entries made by the Scribe were at my direction and personally dictated [...] up as needed only Chief Complaint EVELYN GAYTAN is being seen for an annual follow-up [...] 04Jun2021 10:58AM Heart Rate88, L Brachial Artery Nzgclvpe942, LUE, Sitting Yjtphzpoh10, LUE, Sitting Height5 ft 7 in Wperab981 lb BMI Agyoaowqwl66.3 kg/m2 BSA Calculated1.72 Tobacco Useb) No Fall [...] 2021 1:39PM (more content not included)... Normal [facility] Tobacco Screening.on 022 Fall risk assessment c) Not medically indicated [facility] [facility] DO Work Phone: Tobacco use status [facility] b) No MP-[facility] 250 DO Work Phone: HCG, SERUM, QUALITATIVEon hCG Qual Negative [place] Coding Summary.on 05-09-2018 Coding Summary. CODING DATE: 018 [facility] STATUS: Home (Routine DC) PAYOR: Government ADMIT [...] CphT Date Saved: 05/09/2018 10:03 am Normal [facility] Lab Miscellaneouson 05-07-20 Status See Ref Lab Report Normal [facility] Comment on above: Performed By: #### 1 [id number] #### [facility] [address] [place] [address] Lab Miscellaneouson 04-28-20 Test Name PAP [facility] Comment on above: Performed By: #### 1 [id number] #### [facility] [address] [place] [address] Vital Signs Date Time Vital Sign Value Performing Clinician Ajayi ajayy 09-15-2021 14:33-0400 Diastolic blood pressure 70 mm[Hg] [address] [facility] 09-15-2021 14:33-0400 Heart rate 108 /min [address] 09-15-2021 14:33-0400 Systolic blood pressure 141 mm[Hg] [address] [facility] 09-15-2021 10:30-0400 Body temperature 98.4 [degF] [address] 09-15-2021 10:30-0400 Respiratory rate 18 /min [address] [facility] 09-15-2021 10:30-0400 SaO2% (BldA) [Mass fraction] 100 % [address] [facility] 06-04-2021 10:58-0500 Body height 170.18 cm Sol Llanos [facility] Work Phone[facility] [employer] DO Work Phone: 06-04-2021 10:58-0500 Body mass index (BMI) [Ratio] 21.3 kg/m2 Sol Llanos [facility] Work Phone: [facility] [employer] 250 DO Work Phone: 06-04-2021 10:58-0500 Body surface area Derived from formula 1.72 m2 Sol Llanos [facility] Work Phone: [facility] [employer] 250 DO Work Phone: 06-04-2021 10:58-0500 Body weight 61.69 kg Sol Llanos [facility] Work Phone: [facility] [employer] 250 DO Work Phone: 06-04-2021 10:58-0500 Diastolic blood pressure 53 mm[Hg] Sol Llanos [facility] Work Phone: [facility] A 250 DO Work Phone: 06-04-2021 10:58-0500 Heart rate 88 /min Sol Gibbs Work Phone: [facility] 250 DO Work Phone: 06-04-2021 10:58-0500 Systolic blood pressure 108 mm[Hg] Sol Gibbs Work Phone: [facility] 250 DO Work Phone: 11-13-2019 10:40-0400 BMI (Body Mass Index) 20 kg/m2 [facility] [place], [place] 11-13-2019 10:40-0400 Body Temperature 97.81 [degF] [facility] 1 [facility] 11-13-2019 10:40-0400 Body weight 57.92 kg [facility] 1 [facility] [place], [place] 11-13-2019 10:40-0400 BP Diastolic 90 mm[Hg] Malz 1 [facility]- [place] , [place] 11-13-2019 10:40-0400 BP Systolic 118 mm[Hg] Malz 1 [facility] [place] , [place] 11-13-2019 10:40-0400 Height 170.2 cm Mal 1 [facility] [place] 11-13-2019 10:40-0400 Pulse (Heart Rate) 91 /min Mal 1 [facility] [place], [place] 11-13-2019 10:40-0400 Pulse Oximetry 100 % Malz 1 [facility] [place], [place] 11-13-2019 10:40-0400 Respiratory Rate 16 /min Malz 1 [facility] Encounters Encounter Date Encounter Type Care Provider Facility Start: 06-09-2023 End: 06-09-2023 ambulatory Sol Gibbs Facility:[facility] Start: 06-08-2023 End: 06-08-2023 ambulatory MD Sol Gibbs Work Phone: [facility] Work Phone: Start: 06-08-2023 End: 01-23-2024 Departed Referred MD Sol Gibbs Work Phone: [facility] Start: 06-07-2023 End: 06-08-2023 ambulatory NICK L FLORO Not Available Start: 06-01-2023 End: 06-02-2023 ambulatory NICK L [...] 04-02-2022 End: 04-02-2022 Emergency department patient visit [facility] Start: 09-15-2021 End: 09-16-2021 ambulatory [facility] Start: 09-15-2021 End: 09-15-2021 Subsequent hospital visit by physician [facility] Infusion Bed 2 [facility] OP INFUSION Comment on above: Migraine without aur a and with status migrainosus, not intractable (Primary Dx) Start: 06-04-2021 Office outpatient vi sit 15 minutes Sol Llanos Danielle Work Phone: [facility] 250 DO Work Phone: Start: 11-13-2019 End: 11-13-2019 Subsequent hospital visit by physician Malz Infusion Bed 1 MALZ OP INFUSION Comment on above: Arrived Procedures Date Procedure Procedure Detail Performing Clinician Start: 09-15-2021 Gonadotropin chorion ic qualitative Keisha Somers MD Work Phone: Start: 11-13-2019 Gonadotropin chorion ic qualitative Keisha Somers Work Phone: Start: 06-21-2019 Echocardiography Esophagogastroduodenoscopy M curtis Ravily Work Phone: Procedure on lymph node Sol Ravily Work Phone: NEGATED: Highlighted row has not occurred! Total colonoscopy Sol Llanos Solsjuanpablo Work Phone: Plan of Treatment Date Care Activity Detail Author Start: 01-16-2020 Influenza vaccination Flu vacc ine (Season Ended) [place], [place] Start: 12-05-2019 DTaP/Tdap/Td vaccine (2 - Td or Tdap) DTaP/Tdap/Td vaccine (2 - Td or Tdap) [facility] Start: 2018 Screening for malign ant neoplasm of cervix [facility] Start: 2016 DTaP/Tdap/Td vaccine (1 - Tdap) DTaP/Tdap/Td vaccine (1 - Tdap) [place], [place] Start: 2015 Hepatitis C screening Hepatitis C sc reen [facility] Start: 2015 Thyroid stimulating hormone measurement TSH [facility] Start: 06-03-2013 TSH Qn TSH testing [place], [place] Start: 2013 Screening for Chlamy lucia trachomatis Chlamydia screen [facility] Start: 2012 HIV screening HIV screen [facility] Start: 2009 Depression Screen Depression Screen [facility] Start: 2008 HPV vaccine (1 - 2-d ose series) HPV vaccine (1 - 2-dose series) [place], [place] Start: 08-12-1998 Hepatitis B vaccine (2 of 3 - 3-dose primary series) Hepatitis B vaccine (2 of 3 - 3-dose primary series) [facility] Start: 1998 Varicella vaccine (1 of 2 - 2-dose childhood series) Varicella vaccine (1 of 2 - 2-dose childhood series) [place], [place] Immunizations Immunization Date Immunization Notes Care Provider Fa xiomara 04-23-2021 Moderna COVID-19 Vac cine 100 MCG/0.5ML Intramuscular Suspension Sol Llanos [facility] Work Phone: [facility] [employer] 250 DO Work Phone: 04-09-2021 influenza, injectabl e, quadrivalent, contains preservative Sol Llanos Wonder[employer]pablo Work Phone: [facility] [employer] 250 DO Work Phone: 06-05-2020 Moderna COVID-19 Vac cine 100 MCG/0.5ML Intramuscular Suspension Sol Llanos [employer] Work Phone: [facility] 05-08-2020 Moderna COVID-19 Vac cine 100 MCG/0.5ML Intramuscular Suspension Sol Llanos [employer] Work Phone: [facility] 01-16-2020 influenza virus vacc ine, unspecified formulation Sol Llanos [employer] Work Phone: -[facility] [employer] 250 DO Work Phone: 05-08-2019 Moderna COVID-19 Vac cine 100 MCG/0.5ML Intramuscular Suspension Sol Llanos [employer] Work Phone: [facility] 250 DO Work Phone: 04-03-2019 influenza, injectabl e, quadrivalent, preservative free Sol Llanos [employer] Work Phone: [facility] 250 DO Work Phone: 02-14-2019 influenza virus vacc ine, unspecified formulation Sol Llanos [employer] Work Phone: [facility] 250 DO Work Phone: 01-25-2018 hepatitis B vaccine, adult dosage Sol Llanos [employer] Work Phone: [facility] 250 DO Work Phone: 06-21-2017 hepatitis B vaccine, adult dosage Sol Llanos [employer] Work Phone: [facility] 250 DO Work Phone: 06-21-2017 varicella virus vaccine Sol Llanos [facility] [facility] Phone[facility] DO Work Phone: 05-19-2017 varicella virus vaccine Sol Llanos [facility] Work Phone: [facility] DO Work Phone: 05-05-2017 Human Papillomavirus 9-valent vaccine Sol lLanos [employer] Work Phone: [facility] 250 DO Work Phone: 04-30-2017 hepatitis B vaccine, adult dosage Sol Llanos [employer] Work Phone: [facility] 250 DO Work Phone: 12-28-2016 Human Papillomavirus 9-valent vaccine Sol Llanos [employer] Work Phone: [facility] 250 DO Work Phone: 10-27-2016 Human Papillomavirus 9-valent vaccine Sol Llanos [employer] Work Phone: [facility] 250 DO Work Phone: 12-04-2009 tetanus toxoid, redu reji diphtheria toxoid, and acellular pertussis vaccine, adsorbed Sol Llanos Wonderly Work Phone: [place] [phone] DO Work Phone: 07-15-1998 hepatitis B vaccine, pediatric or pediatric/adolescent dosage Sol Llanos Wonderly Work Phone: [facility] 250 DO Work Phone: 07-15-1998 measles, mumps and rubella virus vaccine Sol Llanos Wonderly Work Phone: [place] [address] DO Work Phone: Payers Date Payer Category Payer Self-pay [id number] 2023 Unknown [id number] 2023 Unknown [id number] 2019 [employer] ( and others) [facility] xxxxxxxxx 2019-Present [address] [place] [address] xxxxxxxxx [id number] 2019 [employer] ( and others) [id number] .[id number] 1997 Unknown [id number] 2.16.840.1.990935.3.579 .2.185 1997 Unknown [id number] 2.16.840.1.922944.3.579 .2.173 1997 Unknown [id number] 2.16.840.1.227405.3.579 .2.1259 1997 Unknown [id number] 2.16.840.1.753254.3.579 .2.1259 1997 Unknown [id number] 2.16.840.1.896713.3.579 .2.1259 1997 Unknown [id number] 2.16.840.1.094951.3.579 .2.1259 1997 Unknown [id number] 2.16.840.1.134330.3.579 .2.1259 1997 Unknown [id number] 2.16.840.1.203536.3.579 .2.1259 1997 Unknown [id number] 2.16.840.1.652877.3.579 .2.1259 1997 Unknown [id number] 2.16.840.1.774118.3.579 .2.1259 Unknown [facility] [employer] ( and others) [id number] 2.16.840.1.471252.3.579 .2.531 Worker's Compensation [facility] [id number] Social History Date Type Detail Facility Start: 06-22-2012 End: 06-14-2021 Tobacco smoking status [facility] Never smoker [facility] Start: 06-22-2012 Alcohol intake Not Asked [facility] JESSICA ARCHER Start: 1995 Sex Assigned At Not on file [place] JESSICA ARCHER No illicit drug use No illicit drug use M [facility] 250 DO Work Phone: Start: 1995 Sex Assigned At Female F [facility] History of Present illness Narrative 09-15-2021 [place] [...] ambulatory from unit. documented in this encounter [facility] Phone: Evaluation note Note Date & Type Note Facility Evaluation note Diagnosis Migraine without aura and with status migrainosus, not intractable- Primary Migraine without aura, without mention of intractable migraine with status migrainosus documented in this encounter [facility] Phone: Evaluation note Note Date & Type Note Facility Evaluation note No assessment information availa [facility] Work Phone: Reason for visit Narrative Treatment Plan and Therapy Plan (Routine) - Authorized Note Date & Type Note Facility Reason for visit Narrative Specialty Diagnoses / Procedures Referred By Contac t Referred To Contact Diagnoses Migraine without aura and with status migrainosus, not intractable Procedures SD INJ MAGNESIUM SULFATE SD DEXAMETHASONE SODIUM PHOS SD DRUGS UNCLASSIFIED INJECTION Keisha Somers MD [address] [place] [address] [facility] [address] [place] [address] Referral ID Status Reason Start Date Expiration Date V isits Requested Visits Authorized [id number] Authorized 09/05/2021 09/05/2022 99 99 [facility] Phone: Summary Purpose Family History No Family History Records FoundUnknown Family Member Name Dates Details Family history of diabetes m ellitus: Mother(V18.0, Z83.3) Status:Active Essential hypertension, iraj gn: Mother, Father Status:Active Family history of sleep apne a: Mother(V19.8, Z82.0) Status:Active High serum cholestanol: Moth er, Father Status:Active High triglycerides: Mother Status:Active Relationship Condition Age at Onset Recorded Date/T kathrine Not Specified Diabetes mellitus Unknown Hyperlipidemia Unknown Hypertension Unknown Polycystic ovary syndrome Unknown father Hyperlipidemia Unknown Advance Directives No Advanced Directives Records FoundDocuments on File Type Date Recorded Patient Primer Waterproofing 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 Adjuster Expl anation Advance Directives and Living Will Power of Mental Health Coordinator Documents on File Type Date Recorded Patient Primer Waterproofing 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 Adjuster Expl anation ACP-Advance Directive ACP-Power of Mental Health Coordinator Advance Directive Response Recorded Date/ Time Advance Directives No October 16 9 7:20am History of Present Illness * [place] Kang [...] in this encounter Chief Complaint * EVELYN GAYTAN is being seen for an annual follow-up [...] section and content) DATE CREATED AUTHOR 03/23/2019 [facility] DATE CREATED AUTHOR AUTHOR'S ORGANIZ ATION 06/23/2019 [facility] DATE CREATED AUTHOR AUTHOR'S ORGANIZ ATION 06/05/2021 [facility] DATE CREATED AUTHOR AUTHOR'S ORGANIZ ATION 09/17/2021 [facility] DATE CREATED AUTHOR AUTHOR'S ORGANIZ ATION 11/08/2021 [facility] DATE CREATED AUTHOR AUTHOR'S ORGANIZ ATION 04/13/2022 [facility] DATE CREATED AUTHOR AUTHOR'S ORGANIZ ATION 06/12/2023 [facility] DATE CREATED AUTHOR AUTHOR'S ORGANIZ ATION 06/12/2023 [facility] EPIC Reason for Visit (unrecogniz ed section and content) Status Reason Specialty Diagnoses / Procedures Referred By Contact Referred To Contact Authorized Infusion / Infusion Therapy Diagnoses Migraine, unspecified, intractable, without status migrainosus Procedures SD INJ MAGNESIUM SULFATE SD DEXAMETHASONE SODIUM PHOS SD DRUGS UNCLASSIFIED INJECTION Keisha Somers MD [address] [place] [address] [facility] [address] [place] [address] Care Teams (unrecognized sec tion and content) Shellfish Sorter Relationship Specialty Start Date End Date Sol Gibbs MD PCP - General 05/02/12 Team Status: Active Member Role Status Dates Sol Gibbs MD Primary Care Provider Active Team Status: Inactive Member Role Status Dates Sol Gibbs MD Primary Care Provider Active Start: June 08, 2023 End: June 08, 2023 Nick Ferrell APRN Attending Provider Active Start: June 08, 2023 End: June 08, 2023 Goals (unrecognized section and content) Goals may be documented in a n alternate section FOR RECORDS PERTAINING TO PATIENTS WHO ARE [...] BE BASED ON THE PRIMARY CLINICAL RECORDS. [facility] [employer] [facility]. provides no warranty or guarantee of the accuracy or completeness of information in this document.
--- NOTE | 2023-06-14 15:48 | PC.NURSE ---
Antonio Hernandez and 6 day old son Douglas arrive for follow up visit. All are reported to be doing well. Baby Douglas really has eating down Parents reports baby wakes every 2 hours during the day for feeds, and wants to cluster a feeding in the middle of the night. Baby has multiple wets and stools daily, 8+ wets and 5+ yellow seedy stools. Color is pink without signs of jaundice. Mary's VVS and assessment WNL. No concern's voiced for self at this time. Douglas 's VVS and assessment WNL. Baby above weight at 6 days old. Family doing well and no concerns noted.
[2023-06-14 15:49] VITALS: BP 127/86; PULSE 92; RESP 18; TEMP 36.5; O2SAT 97
== END 2023-06-14 13:45 | disposition home or self-care (01) ==
LOC: FBCO 08:37
PROVIDERS: PCP Family Medicine; Visit Provider Midwife
DX: Z39.2 Encounter for routine postpartum follow-up (principal)

== ENCOUNTER 2023-06-22 08:20 | Outpatient (OUT) | payer BC, SELFPAY ==
--- OUTSIDE RECORDS SUMMARY | 2023-06-22 08:22 | XMS_ITS | CCD ---
Author Name Unknown Address [address] [place] [address] Organization [facility] Care Team Providers Care City Superintendent Name Role Phone Sol Gibbs Primary Care Provider Sol Gibbs Unavailable Unavailable Unavailable Sol Gibbs MD Primary Care Provider SOL GIBBS Primary Care Unavailable KEISHA SOMERS Referring Unavailable SOL GIBBS Primary Care Unavailable SIMI BARBOZA Attending Unavailable MD Sol Gibbs Primary Care Provider STEFFANY Ferrell Attending Provider [phone] Sol Gibbs Primary Care Unavailable Nick Ferrell Attending Unavailable Ghassan Nick Bettye Admitting Unavailable SOL GIBBS Attending Unavailable FLORLaura NICK L Attending Unavailable FLORO, NICK L Attending Unavailable FLORO NICK L Attending Unavailable FLORO NICK L Attending Unavailable FLORO, NICK L Attending Unavailable FLORO, NICK L Attending Unavailable FLORO, NICK L Referring Unavailable FLORO NICK L Attending Unavailable Allergies Allergy Classification Reported Allergen(s) Allergy Type Date of Onset Reaction(s) Facility (2 sources) topiramate; Translations: [Topamax] Drug Allergy 1 Other (See Comments) [facility] [place] [address] DO Work Phone: (1 source) Triptans; Translations: [Triptans] Allergy to drug (finding) Chest Pain, Palpitations [facility] [employer] [address] DO Work Phone: (1 source) SUMAtriptan Drug Allergy 1 Other (See Comments) [employer] (2 sources) topiramate; Translations: [topiramate] Drug Allergy 2 Hallucinating [facility] (2 sources) Hjlonjyl-1-NB5 Antimigraine Agents; Translations: [Wkfttdsk-7-WU9 Antimigraine Agents] Propensity to adverse reactions 2 Chest Pain [facility] Medications Current Medications Medication Drug Class(es) Dates Sig (Normalized) Sig (Original) [id number] 200 actuat albuterol 0.09 mg/actuat metered dose [...] MG PO Q6H July 09, 2019 12:00am June 14, 2021 7:27pm polyethylene glycol 3350 38422 mg powder for oral solution (2 sources) [...] Start: 08-20-2020 take 1 tablet by remberto th once daily as needed Ubrelvy 50 MG [...] Start: 04-02-2020 take 1 capsule by mo uth once daily Zonegran 100 MG Oral Capsule [...] Test Name Value Interpretation Reference Range Facility [facility] 06-09-2023 L Specimen: [id number] Re ceived: 06/09/23 Status: RIGOBERTO Gómez Num: [id number] Spec Type: Surgical Subm Dr: Holger Hollingsworth Tissues: A Placenta - 3rd Trimester (Greater than 28 weeks) (PLACENTA) Procedures: HE/5, Gross/Micro L5 Age/ Patient Sex Location Account Attending Physician Evelyn Gaytan 28/F [place] [id number] Nick Bettye Ferrell, OUTDOOR PURSUITS INSTRUCTOR SPEC NUM: [id number] RECD: 06/09/23 STATUS: RIGOBERTO GÓMEZ NUM: [id number] MANUEL: 06/08/[address]: Holger Hollingsworth ENTERED: 06/09/[address]: Clay,Lab SPEC TYPE: Surgical DEPT: FAWN [...] than 1% of the overall parenchymal volume. Confectionery Drops Machine Operator sections are submitted in 5 cassettes as follows: A1 - membranes, umbilical cord, and decidua basalis A2 - Central placenta, full-thickness, grossly unremarkable A3-A4 - 2 separate areas of well-demarcated lesions, central placenta, partial thickness ----- Specimen: [id number] Received: 06/09/23 Status: RIGOBERTO Gómez Num: [id number] Spec Type: Surgical Subm Dr: Holger Hollingsworth Tissues: A Placenta - 3rd Trimester (Greater than 28 weeks) (PLACENTA) Procedures: , Gross/Micro L5 ----- Patient: LucilaEvleyn [id number] (Continued) ----- Specimen: [id number] Received: 06/09/23 (Continued) Gross Description (Continued) Signed (signature on file) Torito Fields MD 06/10/23 2239 ----- Specimen: [id number] Received: 06/09/23 Status: RIGOBERTO Gómez Num: [id number] Spec Type: Surgical Subm Dr: Holger Hollingsworth Tissues: A Placenta - 3rd Trimester (Greater than 28 weeks) (PLACENTA) Procedures: HE/5, Gross/Micro L5 ----- Patient: Evelyn Gaytan [id number] (Continued) ----- Specimen: [id number] Received: 06/09/23 (Continued) Gross Description (Continued) A5 - Peripheral placenta, full-thickness CPT Codes 76892 ----- ----- Specimen: [id number] Received: 06/09/23-1339 Status: RIGOBERTO Gómez Num: [id number] Spec Type: Surgical Subm Dr: Holger Hollingsworth Tissues: A Placenta - 3rd Trimester (Greater than 28 weeks) (PLACENTA) Procedures: HE/5, Gross/Micro L5 ----- Patient: Evelyn Gaytan [id number] (Continued) ----- Signed (signature on file) Torito Fields MD 06/10/237 [facility] US OB FOLLOW UP TRANSABDOMIN [...] by Mike Tyson on 11/07/2021 1227 Normal [facility] Specialist HCG, SERUM, QUALITATIVEon hCG Qual Negative [facility] Serum HCG Qualitativeon Serum HCG Qualitative Negative Normal [facility] Comment on above: Performed By: #### S HCG #### [facility] [address] [facility] [place] [address] Q - TSH and T4,FREEon 2021 Free T4 [Mass/Vol] 1.2 ng/dL Normal 0.8-1.8 Moise [facility] [employer] Comment on above: Order Comment: [facility] Testing performed at: [employer], [employer] [facility], [address] [place] [address], [address] [place] [address], [phone], Ticket Clerk: Devaughn Omalley MD [facility] Collection Date/Time: [facility] Results Received Date/Time: [facility] Reported Date/Time: Performed By: #### 3 128 #### [facility] Default [address] [place] [address] TSH Qn 1.51 m[IU]/L Normal [facility] [employer] Comment on above: Order Comment: [facility] performed at: [employer], [employer] [facility], [address] [facility], [address] [place] [address], [phone], Ticket Clerk: Devaughn Omalley MD [facility] Date/Time: [facility] Results Received Date/Time: [id number] [facility] Reported Date/Time: [id number] Result Comment: Refe puja Range > or = 20 Years 0.40-4.50 Ranges First trimester 0.26-2.66 Second trimester 0.55-2.73 Third trimester 0.43-2.91 Performed By: #### 3 128 #### [facility] [address] [place] [address] Office Visit (Cardiology)on 06-04-2021 Follow-up visit Diagnoses/Problems Assessed Dyspnea on minimal exertion (786.09) (R06.00) Sinus tachycardia (427.89) (R00.0) COVID-19 (079.89) (U07.1) Body mass index (BMI) of 21.0 to 21.9 in adult (V85.1) (Z68.21) Patient Instructions By signing my name below, I, Francisca Maddox LPNibsreekanth, attest that this documentation has been prepared under the direction and in the presence of Dr. Franc Escobedo, . All medical record entries made by the [...] 04Jun2021 10:58AM Heart Rate88, L Brachial Artery Eetmbjmg182, LUE, Sitting Clilmxrcq45, LUE, Sitting Height5 ft 7 in Wauvgl088 lb BMI Zdmeknivme48.3 kg/m2 BSA Calculated1.72 Tobacco Useb) No Fall [...] 2021 1:39PM (more content not included)... Normal [employer] Tobacco Screening.on Fall risk assessment c) Not medically indicated [facility] [facility] [place] Work Phone: Tobacco use status [facility] b) No [facility] [address] DO Work Phone: HCG, SERUM, QUALITATIVEon hCG Qual Negative [place], [place] Coding Summary.on 05-09-2018 Coding Summary. CODING DATE: 018 FINAL [facility] STATUS: Home (Routine DC) PAYOR: Government [...] CphT Date Saved: 05/09/2018 10:03 am Normal [facility] Lab Miscellaneouson 05-07-20 Status See Ref Lab Report Normal [facility] Comment on above: Performed By: #### 1 [id number] #### [facility] [address] [place] [address] Lab Miscellaneouson 04-28-20 Test Name PAP [facility] Comment on above: Performed By: #### 1 [id number] #### [facility] [address] [place] [address] Vital Signs Date Time Vital Sign Value Performing Clinician Ajayi lity 09-15-2021 14:33-0400 Diastolic blood pressure 70 mm[Hg] [address] 09-15-2021 14:33-0400 Heart rate 108 /min [address] 09-15-2021 14:33-0400 Systolic blood pressure 141 mm[Hg] [address] 09-15-2021 10:30-0400 Body temperature 98.4 [degF] [address] 09-15-2021 10:30-0400 Respiratory rate 18 /min [address] [employer] 09-15-2021 10:30-0400 SaO2% (BldA) [Mass fraction] 100 % [address] 06-04-2021 10:58-0500 Body height 170.18 cm Sol Llanos [employer] Work Phone: [facility] [employer] [facility] Work Phone: 06-04-2021 10:58-0500 Body mass index (BMI) [Ratio] 21.3 kg/m2 Sol Llanos [employer] Work Phone: [facility] [employer] 250 DO Work Phone: 06-04-2021 10:58-0500 Body surface area Derived from formula 1.72 m2 Sol Llanos [employer] Work Phone: [facility] [employer] 250 DO Work Phone: 06-04-2021 10:58-0500 Body weight 61.69 kg Sol Llanos [employer] Work Phone: [facility] [employer] 250 DO Work Phone: 06-04-2021 10:58-0500 Diastolic blood pressure 53 mm[Hg] Sol Gibbs Work Phone: [facility] 250 DO Work Phone: 06-04-2021 10:58-0500 Heart rate 88 /min Sol Gibbs Work Phone: [facility] 250 DO Work Phone: 06-04-2021 10:58-0500 Systolic blood pressure 108 mm[Hg] Sol Gibbs Work Phone: [facility] [place] 250 DO Work Phone: 11-13-2019 10:40-0400 BMI (Body Mass Index) 20 kg/m2 [facility] [place] [place] 11-13-2019 10:40-0400 Body Temperature 97.81 [degF] [facility] [place] [place] 11-13-2019 10:40-0400 Body weight 57.92 kg Malz 1 [place], [place] 11-13-2019 10:40-0400 BP Diastolic 90 mm[Hg] Malz 1 [facility] [place], [place] 11-13-2019 10:40-0400 BP Systolic 118 mm[Hg] Malz 1 [place] 11-13-2019 10:40-0400 Height 170.2 cm Malz 1 [place], [place] 11-13-2019 10:40-0400 Pulse (Heart Rate) 91 /min Malz 1 [place], [place] 11-13-2019 10:40-0400 Pulse Oximetry 100 % Malz 1 [place], [place] 11-13-2019 10:40-0400 Respiratory Rate 16 /min Malz 1 [facility] [employer] [place] , [place] Encounters Encounter Date Encounter Type Care Provider Facility Start: 06-16-2023 End: 06-17-2023 ambulatory NICK FERRELL Not Available Start: 06-09-2023 End: 06-09-2023 ambulatory Sol Gibbs Facility:[facility] Start: 06-08-2023 End: 06-08-2023 ambulatory MD Sol Gibbs Work Phone: [facility] Work Phone: Start: 06-08-2023 End: 06-08-2023 Departed Referred MD Sol Gibbs Work Phone: [facility] Start: [...] 04-02-2022 End: 04-02-2022 Emergency department patient visit [facility] Start: 09-15-2021 End: 09-16-2021 ambulatory [place] Start: 09-15-2021 End: 09-15-2021 Subsequent hospital visit by physician [facility] 2 [facility] Comment on above: Migraine without aur a and with status migrainosus, not intractable (Primary Dx) Start: 06-04-2021 Office outpatient vi sit 15 minutes Sol Llanos Danielle Work Phone: [facility] 250 DO Work Phone: Start: 11-13-2019 End: 11-13-2019 Subsequent hospital visit by physician [facility] Bed 1 [facility] Comment on above: Arrived Procedures Date Procedure Procedure Detail Performing Clinician Start: 09-15-2021 Gonadotropin chorion ic qualitative Keisha Somers MD Work Phone: Start: 11-13-2019 Gonadotropin chorion ic qualitative Keisha Somers Work Phone: Start: 06-21-2019 Echocardiography Esophagogastroduodenoscopy M curtis Llanos Wonderly Work Phone: Procedure on lymph node Sol Llanos Wonder[employer] Work Phone: NEGATED: Highlighted row has not occurred! Total colonoscopy Sol Llanos Wonder[employer] Work Phone: Plan of Treatment Date Care Activity Detail Author Start: 01-16-2020 Influenza vaccination Flu vacc ine (Season Ended) [place], [place] Start: 12-05-2019 DTaP/Tdap/Td vaccine (2 - Td or Tdap) DTaP/Tdap/Td vaccine (2 - Td or Tdap) [facility] Start: 2018 Screening for malign ant neoplasm of cervix [facility] Start: 2016 DTaP/Tdap/Td vaccine (1 - Tdap) DTaP/Tdap/Td vaccine (1 - Tdap) [place], [place] Start: 2015 Hepatitis C screening Hepatitis C sc reen [facility] Start: 2015 Thyroid stimulating hormone measurement TSH [facility] Start: 06-03-2013 TSH Qn TSH testing [place], [place] Start: 2013 Screening for Chlamy lucia trachomatis Chlamydia screen [facility] Start: 2012 HIV screening HIV screen [facility] Start: 2009 Depression Screen Depression Screen [facility] Start: 2008 HPV vaccine (1 - 2-d ose series) HPV vaccine (1 - 2-dose series) [place], [place] Start: 08-12-1998 Hepatitis B vaccine (2 of 3 - 3-dose primary series) Hepatitis B vaccine (2 of 3 - 3-dose primary series) [facility] Start: 1998 Varicella vaccine (1 of 2 - 2-dose childhood series) Varicella vaccine (1 of 2 - 2-dose childhood series) [place], [place] Immunizations Immunization Date Immunization Notes Care Provider Ronny solano 04-23-2021 Moderna COVID-19 Vac cine 100 MCG/0.5ML Intramuscular Suspension Sol Llanos [employer] Work Phone: [facility] 250 DO Work Phone: 04-09-2021 influenza, injectabl e, quadrivalent, contains preservative Sol Llanos Wonderly Work Phone: [facility] [employer] 250 DO Work Phone: 06-05-2020 Moderna COVID-19 Vac cine 100 MCG/0.5ML Intramuscular Suspension Sol Llanos Wonder[employer] Work Phone: [facility] 05-08-2020 Moderna COVID-19 Vac cine 100 MCG/0.5ML Intramuscular Suspension Sol Llanos Wonder[employer] Work Phone: [facility] 01-16-2020 influenza virus vacc ine, unspecified formulation Sol Llanos Wonderly Work Phone: [facility] [employer] 250 DO Work Phone: 05-08-2019 Moderna COVID-19 Vac cine 100 MCG/0.5ML Intramuscular Suspension Sol Llanos Wonderly Work Phone: [facility] [employer] 250 DO Work Phone: 04-03-2019 influenza, injectabl e, quadrivalent, preservative free Sol Llanos Wonder[employer] Work Phone: [facility] [employer] 250 DO Work Phone: 02-14-2019 influenza virus vacc ine, unspecified formulation Sol Llanos Wonder[employer] Work Phone: [facility] [employer] 250 DO Work Phone: 01-25-2018 hepatitis B vaccine, adult dosage Sol Llanos Wonderly Work Phone: [facility] [employer] 250 DO Work Phone: 06-21-2017 hepatitis B vaccine, adult dosage Sol Llanos Wonder[employer] Work Phone: [facility] [employer] 250 DO Work Phone: 06-21-2017 varicella virus vaccine Sol Llanos Wonderly Work Phone: [facility] [employer] 250 DO Work Phone: 05-19-2017 varicella virus vaccine Sol [facility]lanos Wonder[employer] [facility] Work Phone: 05-05-2017 Human Papillomavirus 9-valent vaccine Sol Llanos Wonder[employer] [facility] DO Work Phone: 04-30-2017 hepatitis B vaccine, adult dosage Sol Llanos Wonder[employer] [facility] DO Work Phone: 12-28-2016 Human Papillomavirus 9-valent vaccine Sol Llanos Wonder[employer] [facility] DO Work Phone: 10-27-2016 Human Papillomavirus 9-valent vaccine Sol Llanos Wonder[employer] [facility] DO Work Phone: 12-04-2009 tetanus toxoid, redu reji diphtheria toxoid, and acellular pertussis vaccine, adsorbed Sol Llanos Wonder[employer] [facility] DO Work Phone: 07-15-1998 hepatitis B vaccine, pediatric or pediatric/adolescent dosage Sol Llanos [employer] [facility]: [facility] DO Work Phone: 07-15-1998 measles, mumps and rubella virus vaccine Sol Llanos Wonder[employer] [facility] Phone: [facility] DO Work Phone: Payers Date Payer Category Payer Self-pay [id number] 2023 Unknown [id number] 2023 Unknown [id number] 2019 [employer] ( and others) [facility] xxxxxxxxx 2019-Present [address] [place] [address] xxxxxxxxx [id number] 2019 [employer] ( and others) [id number] 1997 Unknown [id number] 2.16.840.1.471060.3.579 .2.185 1997 Unknown [id number] 2.16.840.1.888569.3.579 .2.173 1997 Unknown [id number] 2.16.840.1.615212.3.579 .2.1259 1997 Unknown [id number] 2.16.840.1.943164.3.579 .2.1259 1997 Unknown [id number] 2.16.840.1.198303.3.579 .2.1259 1997 Unknown [id number] 2.16.840.1.753340.3.579 .2.1259 1997 Unknown [id number] 2.16.840.1.948608.3.579 .2.9 1997 Unknown [id number] 2.16.840.1.594892.3.579 .2.1259 1997 Unknown [id number] 2.16.840.1.737227.3.579 .2.1259 1997 Unknown [id number] 2.16.840.1.919834.3.579 .2.1259 1997 Unknown [id number] 2.16.840.1.145556.3.579 .2.1259 Unknown [facility] [employer] ( and others) [id number] Unknown [id number] [id number] .2.531 Worker's [employer] [id number] Social History Date Type Detail Facility Start: 06-22-2012 End: 06-14-2021 Tobacco smoking status NHIS Never smoker [employer] Start: 06-22-2012 Alcohol intake Not Asked [place] menjivar- JESSICA ARCHER Start: 1997 Sex Assigned At Not on file M [facility] JESSICA ARCHER No illicit drug use No illicit drug use M -[facility] 250 DO Work Phone: Start: 1997 Sex Assigned At Female F [facility] History of Present illness Narrative 09-15-2021 [place] [...] ambulatory from unit. documented in this encounter [employer] Work Phone: Evaluation note Note Date & Type Note Facility Evaluation note Diagnosis Migraine without aura and with status migrainosus, not intractable- Primary Migraine without aura, without mention of intractable migraine with status migrainosus documented in this encounter [employer] Phone: Evaluation note Note Date & Type Note Facility Evaluation note No assessment information availa [facility] Work Phone: Reason for visit Narrative Treatment Plan and Therapy Plan (Routine) - Authorized Note Date & Type Note Facility Reason for visit Narrative Specialty Diagnoses / Procedures Referred By Contac t Referred To Contact Diagnoses Migraine without aura and with status migrainosus, not intractable Procedures GA INJ MAGNESIUM SULFATE GA DEXAMETHASONE SODIUM PHOS GA DRUGS UNCLASSIFIED INJECTION Keisha Somers MD [address] [place] [address] [facility] [address] [place] [address] Referral ID Status Reason Start Date Expiration Date V isits Requested Visits Authorized Authorized 09/05/2021 09/05/2022 99 99 [employer] Phone: Summary Purpose Family History No Family [...] FoundDocuments on File Type Date Recorded Patient [employer]fection[employer] D[employer] Machine Operator Expl anation Advance Directives and Living Will Power of Barometers Calibrator Documents on File Type Date Recorded Patient [employer]fection[employer] Drops Machine Operator Expl anation ACP-Advance Directive ACP-Power of Barometers Calibrator Advance Directive Response Recorded Date/ Time Advance Directives No October 16 7:20am History of Present Illness * [place] [...] section and content) DATE CREATED AUTHOR 03/23/2019 [facility] DATE CREATED AUTHOR AUTHOR'S ORGANIZ ATION 06/23/2019 [facility] DATE CREATED AUTHOR AUTHOR'S ORGANIZ ATION 06/05/2021 [employer] DATE CREATED AUTHOR AUTHOR'S ORGANIZ ATION 09/17/2021 [facility] DATE CREATED AUTHOR AUTHOR'S ORGANIZ ATION 11/08/2021 [facility]ical Specialist DATE CREATED AUTHOR AUTHOR'S ORGANIZ ATION 04/13/2022 [facility] DATE CREATED AUTHOR AUTHOR'S ORGANIZ ATION 06/12/2023 [facility] DATE CREATED AUTHOR AUTHOR'S ORGANIZ ATION 06/20/2023 [facility] dical Specialists EPIC Reason for Visit (unrecogniz ed section and content) Status Reason Specialty Diagnoses / Procedures Referred By Contact Referred To Contact Authorized Infusion / Infusion Therapy Diagnoses Migraine, unspecified, intractable, without status migrainosus Procedures GA INJ MAGNESIUM SULFATE GA DEXAMETHASONE SODIUM PHOS GA DRUGS UNCLASSIFIED INJECTION Keisha Somers MD [address] [place] [address] [facility] [address] [place] [address] Care Teams (unrecognized sec tion and content) City Superintendent Relationship Specialty Start Date End Date Sol [...] BE BASED ON THE PRIMARY CLINICAL RECORDS. [facility] [employer] provides no warranty or guarantee of the accuracy or completeness of information in this document.
--- NOTE | 2023-06-22 15:03 | PC.NURSE ---
Mary and 3 week old son arrive for support. Mary admits to tired of being up all night with a baby States baby sleeps peacefully and eats every 2-3 hours during the day. baby is also awake from 0200 to 0600 each night and is very stressful for mom. It is like he has days and nights mixed up Review of expectations of baby and reality of having a in the home. Discussed innate needs of babies and why brings conflict to care givers. Discussed LPI behaviors and infant corrected age is 40 weeks tomorrow. Reviewed ways to encourage sleep at night, ie: no long stretches during the day, wake baby for feeds at the 2 hour kika, walk, dance, sing to baby through out the day for change in pattern of sleeping and bath time ritual in evening instead of daytime. Grandmother here and very supportive of new mother and , states I help when I can Mary reports Right nipple had a crack over the weekend, healing now but latching on right side remains difficult. Noted that has a left head tilt as preference. When head righted to midline, infant quickly returns to left head tilt. Discussed impact on latching. Discussed possible body work to ease tight muscles in neck and shoulders. Mom open to chiropractic work, list of providers given. To recliner and shown laid-back nursing position for NB. Baby eagerly latches, relaxes into the feed and both mom and grandmother pleased states he usually is not relaxed and settled during feed at right breast Baby active nursing for 23 minutes with 2 releases from breast, rests for moment and roots, re-latches with minimal assist from mom. Large wet and large stool diaper change after feed. Baby content and drowsy. Mary states will look into chiropractor for NB, and will continue to latch in laid-back position or will try side-lying position at home. Will call LC for further concerns or check on progress. Aware of MOMS group for additional support. Leaves ambulatory with son and grandmother.
== END 2023-06-22 08:21 | disposition home or self-care (01) ==
LOC: FBCO 08:20
PROVIDERS: PCP Family Medicine; Visit Provider Midwife
DX: Z39.1 Encounter for care and examination of lactating mother (principal)

== ENCOUNTER 2023-09-13 08:55 | Outpatient (OUT) | payer BC, SELFPAY ==
--- OUTSIDE RECORDS SUMMARY | 2023-09-13 09:17 | XMS_ITS | CCD ---
Author Organization [facility] Care Team Providers Care Insurance Sales Representative Name Role Phone Sol Gibbs Primary Care Provider [phone] Sol Gibbs Unavailable Unavailable Unavailable Sol Gibbs MD Primary Care Provider SOL GIBBS Primary Care Unavailable KEISHA SOMERS Referring Unavailable MD Sol Gibbs Primary Care Provider STEFFANY Ferrell Attending Provider [phone] Sol Gibbs Primary Care Unavailable Nick Ferrell Attending Unavailable Shannen Ferrelle Bettye Admitting Unavailable SOL GIBBS Attending Unavailable NICK FERRELL Attending Unavailable FLOROROSHANNICK Bettye Attending Unavailable FLORO, NICK Bettye Attending Unavailable FLORO NICK L Attending Unavailable FLOROROSHANNICK Bettye Attending Unavailable FLORSHANNEN SanchezE Bettye Attending Unavailable NICK FERRELL Attending Unavailable SOL GIBBS Attending Unavailable SOL GIBBS Attending Unavailable KEISHA SOMERS Attending Unavailable FLORO NICK Bettye Referring Unavailable FLOROSHANNENE Bettye Attending Unavailable TERESO RANKIN Referring Unavailable SOL GIBBS Primary Care Unavailable MARCK MORLEY Referring Unavailable SOL GIBBS Primary Care Unavailable Allergies Allergy Classification Reported Allergen(s) Allergy Type Date of Onset Reaction(s) Facility (2 sources) topiramate; Translations: [Topamax] Drug Allergy 1 Other (See Comments) [facility] [facility] DO Work Phone: (1 source) Triptans; Translations: [Triptans] Allergy to drug (finding) Chest Pain, Palpitations -[facility] 250 DO Work Phone: (1 source) SUMAtriptan Drug Allergy 1 Other (See Comments) [employer] (2 sources) topiramate; Translations: [topiramate] Drug Allergy 2 Hallucinating [facility] (2 sources) Mxegokml-0-VU8 Antimigraine Agents; Translations: [Ojsrgylu-5-PA4 Antimigraine Agents] Propensity to adverse reactions 2 Chest Pain [facility] Medications Current Medications Medication Drug Class(es) Dates Sig (Normalized) Sig (Original) [id number] 200 actuat albuterol 0.09 mg/actuat metered dose [...] Start: 11-12-2020 take 1 tablet by remberto twice daily Cyclobenzaprine HCl - 10 MG [...] June 14, 2021 7:27pm polyethylene glycol 3350 60472 mg powder for oral solution (2 sources) [...] Problem Classification Problem Date Documented Date Episodic/Chronic Administrative/socia l admission (4 sources) Encounter for pre-employment examination; Translations: [Encounter for pre-employment examination] Onset: 08-20-2023 Episodic Cardiac dysrhythmias (4 sources) Palpitations; Translations: [Palpitations] 04-28-2023 Episodic Headache; including migraine (3 sources) Migraine [...] Test Name Value Interpretation Reference Range Facility T-Spoton 08-27-2023 T-Spot. TB Test Normal [facility] Comment on above: Result Comment: [facility] [employer] [address] [place] [address] (NOTE) T-SPOT TB Negative Normal Value: Negative A negative test result does not exclude the possibility of exposure to or infection with Mycobacterium tuberculosis (M tuberculosis). Patients with recent exposure to TB infected individuals exhibiting a negative T-SPOT.TB result should be considered for retesting within 6 weeks or if other relevant clinical symptoms indicate. Results from T-SPOT.TB testing must be used in conjunction with each individual's epidemiological history, current medical status, and results of other diagnostic evaluations. The T-SPOT.TB test is qualitative and results are reported as positive, borderline or negative, given that the test controls perform as expected. In line with the Centers for Disease Control and Prevention's 2010 recommendation to report quantitative measurements alongside the qualitative result, the laboratory provides spot counts for information purposes only. The T-SPOT.TB test should be interpreted as a quantitative test. Panel A Spot Count (Corrected for Negative Control) 0 Panel B Spot Count (Corrected for Negative Control) 2 Negative Control Passed Positive Control Passed Performed By: #### T SPOT #### [employer] [address] [place] [id number] Global Sales Manager: Marcelo Hampton MD Measles (Rubeola) Imon 08-22 Measles (Rubeola) Im 1.75 Normal >1.09 [facility] Comment on above: Result Comment: Interpretation: IMMUNE Reference Range: <0.91 Not Immune 0.91-1.09 Equivocal >1.09 Immune Performed By: #### R UBI, WILMAR, MAC #### [facility] [employer] [address] [place] [address] [id number] Global Sales Manager: Marcelo Hampton MD Mumps,Immun,Abon 08-23-2023 Mumps,Immun,Ab 0.96 Low >1.09 [facility] Comment on above: Result Comment: Reference Range: <0.91 Not Immune 0.91 - 1.10 Equivocal >1.10 Immune Performed By: #### R UBI, WILMAR, MAC #### [employer] [facility] [place], [place] [id number] Global Sales Manager: Marcelo Hampton MD Rubella Ab, IgGon 08-21-2023 Rubella Ab, IgG 19.6 IU/mL Normal [facility] Comment on above: Result Comment: <10 NON REACTIVE Negative for Anti-Rubella IgG >=10 REACTIVE Positive for Anti Rubella IgG The presence of IgG antibody to Rubella virus is an indication of previous exposure either by prior infection or vaccination. Performed By: #### R UBI, WILMAR, MAC #### [employer] [address] [place] [id number] Global Sales Manager: Marcelo Hampton MD [facility] 06-09-2023 L Specimen: [id number] Re ceived: 06/09/23 Status: SOUT Req Num: [id number] Spec Type: Surgical Subm Dr: Holger Hollingsworth Tissues: A Placenta - 3rd Trimester (Greater than 28 weeks) (PLACENTA) Procedures: HE/5, Gross/Micro L5 Age/ Patient Sex Location Account Attending Physician Evelyn Gaytan 28/F [place]E[facility] [id number] Nick Ferrell APRN SPEC NUM: [id number] RECD: 06/09/23 STATUS: SOUT REQ NUM: [id number] MANUEL: 06/08/[address]: Holger Hollingsworth ENTERED: 06/09/[address] [facility] [address]: Clay,Lab SPEC TYPE: Surgical DEPT: FAWN [...] thickness with a small number of well-demarcated pink-orenlas slightly firm lamellated lesions up to 1.2 cm in greatest dimension and together compromising less than 1% of the overall parenchymal volume. Publisher Assistant sections are submitted in 5 cassettes as follows: A1 - membranes, umbilical cord, and decidua basalis A2 - Central placenta, full-thickness, grossly unremarkable A3-A4 - 2 separate areas of well-demarcated lesions, central placenta, partial thickness ----- Specimen: [id number] Received: 06/09/23 Status: RIGOBERTO Gómez Num: [id number] Spec Type: Surgical Subm Dr: Holger Hollingsworth Tissues: A Placenta - 3rd Trimester (Greater than 28 weeks) (PLACENTA) Procedures: HE/5, Gross/Micro L5 ----- Patient: Nicholas Gaytanssica L [id number] (Continued) ----- Specimen: [id number] Received: 06/09/23 (Continued) Gross Description (Continued) Signed (signature on file) Torito Fields MD 06/10/232238 ----- Specimen: [id number] Received: 06/09/23 Status: RIGOBERTO Gómez Num: [id number] Spec Type: Surgical Subm Dr: Holger Hollingsworth Tissues: A Placenta - 3rd Trimester (Greater than 28 weeks) (PLACENTA) Procedures: Victoria MELGAR/Gordon Kulkarni ----- Patient: Evelyn Gaytan [id number] (Continued) ----- Specimen: [id number] Received: 06/09/23 (Continued) Gross Description (Continued) A5 - Peripheral placenta, full-thickness CPT Codes 69455 ----- ----- Specimen: [id number] Received: 06/09/23 Status: RIGOBERTO Gómez Num: [id number] Spec Type: Surgical Subm Dr: Holger Hollingsworth Tissues: A Placenta - 3rd Trimester (Greater than 28 weeks) (PLACENTA) Procedures: OLMAN/Arjun, Gross/Micro L5 ----- Patient: Evelyn Gaytan [id number] (Continued) ----- Signed (signature on file) Torito Fields MD 06/10/23 2239 Normal [facility] US OB FOLLOW UP TRANSABDOMIN AL [...] by Mike Tyson on 11/07/2021 1227 Normal [facility] [employer] HCG, SERUM, QUALITATIVEon hCG Qual Negative [facility] Serum HCG Qualitativeon 05-0 Serum HCG Qualitative Negative Normal [facility] Comment on above: Performed By: #### S HCG #### [facility] [address] [place] [address] Q - TSH and T4,FREEon 2021 Free T4 [Mass/Vol] 1.2 ng/dL Normal 0.8-1.8 [facility] [place] [employer] Comment on above: Order Comment: [facility] Testing performed at: [employer], [place], [address] [facility], [address] [place] [address], [phone], S[employer]ountain Clerk: Devaughn Omalley MD [facility] Collection Date/Time: [facility] Results Received Date/Time: [facility] Reported Date/Time: Performed By: #### 3 128 #### [facility] Default [address] [place] [address] TSH Qn 1.51 m[IU]/L Normal [facility] [employer] Comment on above: Order Comment: [facility] performed at: [employer], [place] [facility], [address] [facility], [address] [place], [address], [employer] Clerk: Devaughn Omalley MD [facility] Date/Time: [facility] Results Received Date/Time: [facility] Reported Date/Time: Result Comment: Refe rence Range > or = 20 Years 0.40-4.50 Ranges First trimester 0.26-2.66 Second trimester 0.55-2.73 Third trimester 0.43-2.91 Performed By: #### 3 128 #### [facility] [address] [place] [address] Office Visit (Cardiology)on 06-04-2021 Follow-up visit Diagnoses/Problems [...] 04Jun2021 10:58AM Heart Rate88, L Brachial Artery Xkkecyfz449, LUE, Sitting Yxkugbrzn51, LUE, Sitting Height5 ft 7 in Mpeuor720 lb BMI Mawjywzkom65.3 kg/m2 BSA Calculated1.72 Tobacco Useb) No Fall [...] 2021 1:39PM (more content not included)... Normal [employer] [facility] Tobacco Screening.on 022 Fall risk assessment c) Not medically indicated [facility] [place] [facility] [facility] DO Work Phone: Tobacco use status CP b) No [facility] [facility] DO Work Phone: HCG, SERUM, QUALITATIVEon hCG Qual Negative [facility] [place], [place] Coding Summary.on 05-09-2018 Coding Summary. CODING DATE: 018 FINAL [facility] STATUS: Home (Routine DC) PAYOR: Government ADMIT [...] CphT Date Saved: 05/09/2018 10:03 am Normal [facility] Lab Miscellaneouson 05-07-20 18 Status See Ref Lab Report Normal [facility] Comment on above: Performed By: #### 1 [id number] #### [facility] [address] [place] [address] Lab Miscellaneouson 04-28-20 18 Test Name PAP [facility] Comment on above: Performed By: #### 1 [id number] #### [facility] [address] [place] [address] Vital Signs Date Time Vital Sign Value Performing Clinician Gerald gutierrez 09-15-2021 14:33-0400 Diastolic blood pressure 70 mm[Hg] [address] 09-15-2021 14:33-0400 Heart rate 108 /min [address] 09-15-2021 14:33-0400 Systolic blood pressure 141 mm[Hg] [address] 09-15-2021 10:30-0400 Body temperature 98.4 [degF] [address] 09-15-2021 10:30-0400 Respiratory rate 18 /min [address] 09-15-2021 10:30-0400 SaO2% (BldA) [Mass fraction] 100 % [address] 06-04-2021 10:58-0500 Body height 170.18 cm Sol Gibbs Work Phone: [facility] [employer] 250 DO Work Phone: 06-04-2021 10:58-0500 Body mass index (BMI) [Ratio] 21.3 kg/m2 Sol Llanos Familybuilder Work Phone: [facility] [employer] [place] 250 DO Work Phone: 06-04-2021 10:58-0500 Body surface area Derived from formula 1.72 m2 Sol Llanos Familybuilder Work Phone: [facility] [employer] [place] 250 DO Work Phone: 06-04-2021 10:58-0500 Body weight 61.69 kg Sol Llanos [employer]anp[employer] Work Phone: [facility] [employer] 250 DO Work Phone: 06-04-2021 10:58-0500 Diastolic blood pressure 53 mm[Hg] Sol Llanos [employer]anpablo Work Phone: [facility] [employer] 250 DO Work Phone: 06-04-2021 10:58-0500 Heart rate 88 /min Sol Llanos Def[employer]ensjuanpablo Work Phone: [facility] [employer] 250 DO Work Phone: 06-04-2021 10:58-0500 Systolic blood pressure 108 mm[Hg] Sol Llanos Def[employer]ensjuanpablo Work Phone: [facility] [employer] 250 DO Work Phone: 11-13-2019 10:40-0400 BMI (Body Mass Index) 20 kg/m2 Malz [address] [facility] [place], [place] 11-13-2019 10:40-0400 Body Temperature 97.81 [degF] [facility] 1 [facility] [place] 11-13-2019 10:40-0400 Body weight 57.92 kg Malz 1 [facility] [place] , [place] 11-13-2019 10:40-0400 BP Diastolic 90 mm[Hg] Malz 1 [facility] [place] , [place] 11-13-2019 10:40-0400 BP Systolic 118 mm[Hg] Malz 1 [facility] [place] , [place] 11-13-2019 10:40-0400 Height 170.2 cm Malz 1 [facility] [place] , [place] 11-13-2019 10:40-0400 Pulse (Heart Rate) 91 /min Malz 1 [facility] [place], [place] 11-13-2019 10:40-0400 Pulse Oximetry 100 % Malz 1 [facility] [place] , [place] 11-13-2019 10:40-0400 Respiratory Rate 16 /min Malz 1 [facility] [place] Encounters Encounter Date Encounter Type Care Provider Facility Start: 08-25-2023 End: 08-26-2023 ambulatory MARCK MORLEY [facility] Start: 08-20-2023 End: 08-21-2023 ambulatory TERESOEdgar RANKIN [facility] Start: 08-19-2023 End: 08-19-2023 ambulatory KEISHA SOMERS Not Available Start: 08-02-2023 End: 08-02-2023 ambulatory SOL Llanos WONDERLY Not Available Start: 07-28-2023 End: 07-28-2023 ambulatory SOL Llanos WONDERLY Not Available Start: 07-21-2023 End: 07-21-2023 ambulatory NICK L FLORO Not Available Start: 06-16-2023 End: 06-17-2023 ambulatory NICK L FLORO Not Available Start: 06-09-2023 End: 06-09-2023 ambulatory Sol Gibbs Facility:[facility] Start: 06-08-2023 End: 06-08-2023 ambulatory MD Sol Gibbs Work Phone: [facility] Work Phone: Start: 06-08-2023 End: 06-08-2023 Departed Referred MD Sol Gibbs Work Phone: [facility] Start: 06-07-2023 [...] ambulatory NICK L FLORO Not Available Start: 09-15-2021 End: 09-16-2021 ambulatory SOL Llanos [facility] Start: 09-15-2021 End: 09-15-2021 Subsequent hospital visit by physician [facility] Infusion Bed 2 [facility] Comment on above: Migraine without aur a and with status migrainosus, not intractable (Primary Dx) Start: 06-04-2021 Office outpatient vi sit 15 minutes Sol Llanos Wonderly Work Phone: [facility] 250 DO Work Phone: Start: 11-13-2019 End: [...] Work Phone: Procedure on lymph node Sol Viet Wonderly Work Phone: NEGATED: Highlighted row has not occurred! Total colonoscopy Sol Llanos Wonderly Work Phone: Plan of Treatment Date Care Activity Detail Author Start: 01-16-2020 Influenza vaccination Flu vacc ine (Season Ended) [facility] [place], [place] Start: 12-05-2019 DTaP/Tdap/Td vaccine (2 - Td or Tdap) DTaP/Tdap/Td vaccine (2 - Td or Tdap) [facility] Start: 2018 Screening for malign ant neoplasm of cervix [facility] Start: 2016 DTaP/Tdap/Td vaccine (1 - Tdap) DTaP/Tdap/Td vaccine (1 - Tdap) [place], [place] Start: 2015 Hepatitis C screening Hepatitis C sc reen [facility] Start: 2015 Thyroid stimulating hormone measurement TSH [facility] Start: 06-03-2013 TSH Qn TSH testing [place], [place] Start: 2013 Screening for Chlamy lucia trachomatis Chlamydia screen [facility] Start: 2012 HIV screening HIV screen [facility] Start: 2009 Depression Screen Depression Screen [facility] Start: 2008 HPV vaccine (1 - 2-d ose series) HPV vaccine (1 - 2-dose series) [place], [place] Start: 08-12-1998 Hepatitis B vaccine (2 of 3 - 3-dose primary series) Hepatitis B vaccine (2 of 3 - 3-dose primary series) [facility] Start: 1998 Varicella vaccine (1 of 2 - 2-dose childhood series) Varicella vaccine (1 of 2 - 2-dose childhood series) [place], [place] Immunizations Immunization Date Immunization Notes Care Provider Fa xiomara 04-23-2021 Moderna COVID-19 Vac cine 100 MCG/0.5ML Intramuscular Suspension Sol Llanos Wonderly Work Phone: [facility] 663 DO Work Phone: 04-09-2021 influenza, injectabl e, quadrivalent, contains preservative Sol Viet Wonderly Work Phone: [facility] 873 DO Work Phone: 06-05-2020 Moderna COVID-19 Vac cine 100 MCG/0.5ML Intramuscular Suspension Sol Llanos Wonderly Work Phone: [facility] 05-08-2020 Moderna COVID-19 Vac cine 100 MCG/0.5ML Intramuscular Suspension Sol Llanos Wonderly Work Phone: [facility] 01-16-2020 influenza virus vacc ine, unspecified formulation Sol Llanos Wonderly [facility] Work Phone: 05-08-2019 Moderna COVID-19 Vac cine 100 MCG/0.5ML Intramuscular Suspension Sol Llanos Wonderly Work Phone: [facility] 250 DO Work Phone: 04-03-2019 influenza, injectabl e, quadrivalent, preservative free Sol Llanos Wonderly [facility] DO Work Phone: 02-14-2019 influenza virus vacc ine, unspecified formulation Sol Llanos Wonderly [facility] DO Work Phone: 01-25-2018 hepatitis B vaccine, adult dosage Sol Llanos Wonderly Work Phone: [facility] DO Work Phone: 06-21-2017 hepatitis B vaccine, adult dosage Sol Llanos Wonderly [facility] Phone: [facility] DO Work Phone: 06-21-2017 varicella virus vaccine Sol Llanos Wonderly Work Phone: [facility] DO Work Phone: 05-19-2017 varicella virus vaccine Sol Llanos Wonderly Work Phone: [facility] DO Work Phone: 05-05-2017 Human Papillomavirus 9-valent vaccine Sol Llanos Wonderly Work Phone: [facility] DO Work Phone: 04-30-2017 hepatitis B vaccine, adult dosage Sol Llanos Wonderly Work Phone: [facility] DO Work Phone: 12-28-2016 Human Papillomavirus 9-valent vaccine Sol Llanos Wonderly Work Phone: [facility] 250 DO Work Phone: 10-27-2016 Human Papillomavirus 9-valent vaccine Sol Llanos Wonderly Work Phone: [place] [address] DO Work Phone: 12-04-2009 tetanus toxoid, redu reji diphtheria toxoid, and acellular pertussis vaccine, adsorbed oSl Llanos Wonderly Work Phone: [place] [address] DO Work Phone: 07-15-1998 hepatitis B vaccine, pediatric or pediatric/adolescent dosage Sol Llanos Wonderjuanpablo Work Phone: [facility] DO Work Phone: 07-15-1998 measles, mumps and rubella virus vaccine Sol Llanos Wonderjuanpablo Work Phone: [place] [address] DO Work Phone: Payers Date Payer Category Payer Worker's Compensation [id number] 2023 Self-pay [id number] 2023 Unknown [id number] 2023 Unknown [id number] 2019 [employer] ( and others) [facility] xxxxxxxxx 2019-Present [address] [place] [address] xxxxxxxxx [id number] 2019 [employer] ([employer] and others) [id number] .[id number] 1997 Unknown [id number] 2.16.840.1.094951.3.579 .2.185 1997 Unknown [id number] 2.16.840.1.315615.3.579 .2.9 1997 Unknown [id number] 2.16.840.1.906699.3.579 .2.1258 1997 Unknown [id number] 2.16.840.1.252382.3.579 .2.1258 1997 Unknown [id number] 2.16.840.1.518753.3.579 .2.1258 1997 Unknown [id number] 2.16.840.1.495923.3.579 .2.1258 1997 Unknown [id number] 2.16.840.1.456052.3.579 .2.1258 1997 Unknown [id number] 2.16.840.1.420248.3.579 .2.1258 1997 Unknown [id number] 2.16.840.1.806594.3.579 .2.1258 1997 Unknown [id number] 2.16.840.1.196139.3.579 .2.1258 1997 Unknown [id number] 2.16.840.1.706000.3.579 .2.1258 1997 Unknown [id number] 2.16.840.1.327354.3.579 .2.9 1997 Unknown [id number] 2.16.840.1.233524.3.579 .2.9 1997 Unknown [id number] 2.16.840.1.627610.3.579 .2.1258 1997 Unknown [id number] 2.16.840.1.657080.3.579 .2.173 Unknown [facility] Department of [facility] ([facility] and others) [id number] Unknown [id number] 2.16.840.1.063152.3.579 .2.531 Social History Date Type Detail Facility Start: 06-22-2012 End: 06-14-2021 Tobacco smoking status NHIS Never smoker [employer] Start: 06-22-2012 Alcohol intake Not Asked JESSICA Smith Start: 1995 Sex Assigned At Not on file M JESSICA Escalera No illicit drug use No illicit drug use M [facility] DO Work Phone: Start: 1997 Sex Assigned At Female F [facility] History of Present illness Narrative 09-15-2021 [...] ambulatory from unit. documented in this encounter [employer] Phone: Evaluation note Note Date & Type Note Facility Evaluation note Diagnosis Migraine without aura and with status migrainosus, not intractable- Primary Migraine without aura, without mention of intractable migraine with status migrainosus documented in this encounter [employer] Phone: Evaluation note Note Date & Type Note Facility Evaluation note No assessment information availa ble [facility] Work Phone: Reason for visit Narrative Treatment Plan and Therapy Plan (Routine) - Authorized Note Date & Type Note Facility Reason for visit Narrative Specialty Diagnoses / Procedures Referred By Leopoldo javier Referred To Contact Diagnoses Migraine without aura and with status migrainosus, not intractable Procedures [place] INJ MAGNESIUM SULFATE TN DEXAMETHASONE SODIUM PHOS TN DRUGS UNCLASSIFIED INJECTION Keisha Somers MD [address] [place] [address] [facility] [address] [place] [address] Referral ID Status Reason Start Date Expiration Date V isits Requested Visits Authorized Authorized 09/05/2021 09/05/2022 99 99 [employer] Work Phone: Summary Purpose Family History No Family [...] FoundDocuments on File Type Date Recorded Patient Publisher Assistant Expl anation Advance Directives and Living Will Power of Scientific Informatics Analyst Documents on File Type Date Recorded Patient Publisher Assistant Expl anation ACP-Advance Directive ACP-Power of Scientific Informatics Analyst Advance Directive Response Recorded Date/ Time Advance [...] and content) DATE CREATED AUTHOR 03/23/2019 [facility] DATE CREATED AUTHOR AUTHOR'S ORGANIZ ATION 06/23/2019 [facility] DATE CREATED AUTHOR AUTHOR'S ORGANIZ ATION 06/05/2021 [facility] DATE CREATED AUTHOR AUTHOR'S ORGANIZ ATION 09/17/2021 [facility] DATE CREATED AUTHOR AUTHOR'S ORGANIZ ATION 11/08/2021 [facility] DATE CREATED AUTHOR AUTHOR'S ORGANIZ ATION 07/06/2023 [facility] DATE CREATED AUTHOR AUTHOR'S ORGANIZ ATION 08/20/2023 [facility]ists EPIC DATE CREATED AUTHOR AUTHOR'S ORGANIZ ATION 08/24/2023 [facility] DATE CREATED AUTHOR AUTHOR'S ORGANIZ ATION 08/29/2023 [facility] Reason for Visit (unrecogniz ed section and content) Status Reason Specialty Diagnoses / Procedures Referred By Contact Referred To Contact Authorized Infusion / Infusion Therapy Diagnoses Migraine, unspecified, intractable, without status migrainosus Procedures TN INJ MAGNESIUM SULFATE TN DEXAMETHASONE SODIUM PHOS [place] DRUGS UNCLASSIFIED INJECTION Keisha Somers MD [address] [facility] [address] [place] [address] [facility] [address] [place] [address] Care Teams (unrecognized sec tion and content) Insurance Sales Representative Relationship Specialty Start Date End Date Sol Gibbs MD PCP - General 05/02/12 Team Status: Active Member Role Status Dates Sol Gibbs MD Primary Care Provider Active Team Status: Inactive Member Role Status Dates Sol Gibbs MD Primary Care Provider Active Start: June 08, 2023 End: June 08, 2023 Nick L Floro , HAND SIGN WRITER Attending Provider Active Start: June 08, 2023 [...] BE BASED ON THE PRIMARY CLINICAL RECORDS. [facility] [employer] [facility]. provides no warranty or guarantee of the accuracy or completeness of information in this document.
--- NOTE | 2023-09-13 15:28 | PC.NURSE ---
Antonio Hernandez and 13 week old son Douglas arrive for support. Parents report frustration, confusion and concern with information and guidance given to them regarding and their son. This press writer has not seen baby since follow up visit in which all was going well, had regained weight at day 6 of life. Mom relates that at one point infant fell off growth chart per PCP and continues to plot on 1-2% for growth. Early August baby was readmitted to [facility] for failure to thrive due to poor weight gain , and large regurge after feedings at the breast. Mom was placed on dairy free/gluten free diet at that time. Baby was removed from direct breast feeding, placed on 48 hour stomach rest, had IV fluids and no PO feeds. Infant lost significant weight (per parents) during that time. Was advised that her milk did not have enough calories , told to pump and feed with formula powder added to breast milk to fortify up to 24 calories/oz. Mom had to beg to be allowed to bring baby to breast for 1 feeding 10/10 in 24 hours. Also allowed to pump until empty and comfort nurse the baby X 2 as baby was very fussy, and wanting mom. Currently feeding infant every 3-4 hours, 3 oz pumped milk with 1 tsp Nutramigen powder formula to fortify breast milk. sleeps from 2200 to 0530 without feeding as well. weight naked 4480 gms today. Dry diaper placed and re weighed at 4510 gms. Baby allowed to nurse at both breasts . Noted to latch well, suckle well but does pull at breast and unsettled. Moves head frequently, pulls back and arm movements that hit mom in breasts, Mom states was never a calm baby during feeds but this behavior has increased since hospitalization and introduction of bottles Weight 4560 gms post feed in dry diaper. Discussed with parents. Asking permission to return to direct breast feeding only. Reviewed pro's and cons of same. Given other options such as increasing # of feeds directly at the breast every 2-4 days , maintaining weight checks with home nurse that arrives Wednesday and for weight checks. Looking for same weight gain as seen over last week (4-7 oz per week) without plateau/loss or direct breast for and topping up with 1.5 oz fortified breast milk at each feeding. LC willing to guide parents but not to directly negate recommendations of peds. Parents encouraged to review feeding schedule, encouraging 8-12 feeds in 24 hour period, including feeding at night as these are very beneficial for weight gain and supply. Mom states baby has appointment with customer service representative tomorrow and will seek opinion from doctor as well. Mom currently pumping approximately 21 oz in 24 hours. Advised to increase pumping sessions to meet projected requirement of 28-32 oz daily for full supply, reviewed power pumping before bed as way to boost supply as well. 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 Parents and Douglas leave ambulatory, plans to return 09/20/2023 for further support as needed.
== END 2023-09-13 16:11 | disposition home or self-care (01) ==
LOC: FBCO 08:55
PROVIDERS: PCP Family Medicine; Visit Provider Obstetrics & Gynecology
DX: Z39.1 Encounter for care and examination of lactating mother (principal)
CPT/HCPCS: G0463

== ENCOUNTER 2023-09-23 08:05 | Outpatient (OUT) | payer BC, SELFPAY ==
--- OUTSIDE RECORDS SUMMARY | 2023-09-23 08:27 | XMS_ITS | CCD ---
Author Organization [facility] Care Team Providers Care Airplane Tube Builder Name Role Phone Sol Gibbs Primary Care Provider Sol Gibbs Unavailable Unavailable Unavailable Sol Gibbs MD Primary Care Provider SOL GIBBS Primary Care Unavailable KEISHA SOMERS Referring Unavailable MD Sol Gibbs Primary Care Provider [phone] STEFFANY Ferrell Attending Provider Sol Gibbs Primary Care Unavailable Nick Ferrell Attending Unavailable Jocelin Ferrellerie Bettye Admitting Unavailable TERESO RANKIN Referring Unavailable SOL GIBBS Primary Care Unavailable MARCK MORLEY Referring Unavailable SOL GIBBS Primary Care Unavailable SOL GIBBS Attending Unavailable FLORLaura, NICK Bettye Attending Unavailable FLORO, NICK L Attending Unavailable FLORO, NICK L Attending Unavailable FLORO, NICK L Attending Unavailable FLORO, NICK L Attending Unavailable FLORO, NICK L Attending Unavailable FLORO, NICK L Referring Unavailable FLORO, NICK L Attending Unavailable FLORO NICK L Attending Unavailable SOL GIBBS Attending Unavailable SOL GIBBS Attending Unavailable KEISHA SOMERS Attending Unavailable SOL GIBBS Attending Unavailable Allergies Allergy Classification Reported Allergen(s) Allergy Type Date of Onset Reaction(s) Facility (2 sources) topiramate; Translations: [Topamax] Drug Allergy 1 Other (See Comments) [facility] 250 DO Work Phone: (1 source) Triptans; Translations: [Triptans] Allergy to drug (finding) Chest Pain, Palpitations -Merged With [facility] [place] 250 DO Work Phone: (1 source) SUMAtriptan Drug Allergy 1 Other (See Comments) Mover (2 sources) topiramate; Translations: [topiramate] Drug Allergy [address] [facility] (2 sources) Mgiyijwn-[id number] Antimigraine Agents; Translations: [Zhbgtkrv-0-EI6 Antimigraine Agents] Propensity to adverse reactions [address] [facility] Medications Current Medications Medication Drug Class(es) Dates Sig (Normalized) Sig (Original) [id number] 200 actuat albuterol 0.09 mg/actuat metered dose [...] June 14, 2021 7:27pm polyethylene glycol 3350 79133 mg powder for oral solution (2 sources) [...] take 1 capsule by mo [facility] once daily Zonegran 100 MG Oral Capsule [...] Facility T-Spoton 08-27-2023 T-Spot. TB Test Normal [facility] Comment on above: Result Comment: [facility] [address] [place] [phone] (NOTE) T-SPOT TB Negative Normal Value: Negative [...] Passed Performed By: #### T SPOT #### [facility] [address] [place] [id number] Head Bone Grinder: Marcelo Hampton MD Measles (Rubeola) Imon 08-22 Measles (Rubeola) Im 1.75 Normal >1.09 [facility] Comment on above: Result Comment: Interpretation: IMMUNE Reference Range: <0.91 Not Immune 0.91-1.09 Equivocal >1.09 Immune Performed By: #### R UBI, WILMAR, MAC #### [facility] [address] [place] [address] [id number] Head Bone Grinder: Marcelo Hampton MD Mumps,Immun,Abon 08-23-2023 Mumps,Immun,Ab 0.96 Low >1.09 [facility] Comment on above: Result Comment: Reference Range: <0.91 Not Immune 0.91 - 1.10 Equivocal >1.10 Immune Performed By: #### R UBIWILMAR, MAC #### [facility] [address] [place] [address] [id number] Head Bone Grinder: Marcelo Hampton MD Rubella Ab, IgGon 08-21-2023 Rubella Ab, IgG 19.6 IU/mL Normal [facility] Comment on above: Result Comment: <10 NON REACTIVE Negative for Anti-Rubella IgG >=10 REACTIVE Positive for Anti Rubella IgG The presence of IgG antibody to Rubella virus is an indication of previous exposure either by prior infection or vaccination. Performed By: #### R UBIWILMAR, MAC #### [facility] [address] [place] [id number] Head Bone Grinder: Marcelo Hampton MD Joey 06-09-2023 L Specimen: [id number] Re ceived: 06/09/23 Status: RIGOBERTO [facility] Num: [id number] Spec Type: Surgical Subm Dr: Holger Hollingsworth Tissues: A Placenta - 3rd Trimester (Greater than 28 weeks) (PLACENTA) Procedures: HE/5, Gross/Micro L5 Age/ Patient Sex Location Account Attending Physician Evelyn Gaytan 28/F LABELL [id number] Nick Ferrell APRN SPEC NUM: [id number] RECD: 06/09/23 STATUS: [facility] RE NUM: [id number] MANUEL: 06/08/[address]: Holger Hollingsworth ENTERED: 06/09/[address] [facility] DR: Clay,Lab SPEC TYPE: Surgical DEPT: FAWN [...] than 1% of the overall parenchymal volume. Sales And Catering Coordinator sections are submitted in 5 cassettes as follows: A1 - membranes, umbilical cord, and decidua basalis A2 - Central placenta, full-thickness, grossly unremarkable A3-A4 - 2 separate areas of well-demarcated lesions, central placenta, partial thickness ----- Specimen: [id number] Received: 06/09/23 Status: RIGOBERTO Gómez Num: [id number] Spec Type: Surgical Subm Dr: Holger Hollingsworth Tissues: A Placenta - 3rd Trimester (Greater than 28 weeks) (PLACENTA) Procedures: HE/5, Gross/Micro L5 ----- Patient: Fadumo Gaytannura Wen [id number] (Continued) ----- Specimen: [id number] Received: 06/09/23 (Continued) Gross Description (Continued) Signed (signature on file) Torito Fields MD 06/10/232238 ----- Specimen: [id number] Received: 06/09/23 Status: RIGOBERTO Gómez Num: [id number] Spec Type: Surgical Subm Dr: Holger Hollingsworth Tissues: A Placenta - 3rd Trimester (Greater than 28 weeks) (PLACENTA) Procedures: Victoria MELGAR/Gordon Kulkarni ----- Patient: RameshEvelyn canales [id number] (Continued) ----- Specimen: [id number] Received: 06/09/23 (Continued) Gross Description (Continued) A5 - Peripheral placenta, full-thickness CPT Codes 53640 ----- ----- Specimen: [id number] Received: 06/09/23 Status: RIGOBERTO Gómez Num: [id number] Spec Type: Surgical Subm Dr: Holger Hollingsworth Tissues: A Placenta - 3rd Trimester (Greater than 28 weeks) (PLACENTA) Procedures: OLMAN/Arjun, Gross/Micro L5 ----- Patient: Evelyn Gaytan [id number] (Continued) ----- Signed (signature on file) Torito Fields MD 06/10/[address] [facility] US OB FOLLOW UP TRANSABDOMIN AL APPROACHon [...] by Mike Tyson on 11/07/2021 1227 Normal [facility] HCG, SERUM, QUALITATIVEon hCG Qual Negative [facility] Serum HCG Qualitativeon Serum HCG Qualitative Negative Normal [facility] Comment on above: Performed By: #### S HCG #### [facility] [address] [place] [id number] [phone] Q - TSH and T4,FREEon 2021 Free T4 [Mass/Vol] 1.2 ng/dL Normal 0.8-1.8 Moise [facility] Investigator Operator Comment on above: Order Comment: [facility] Testing performed at: [employer], [email or web address] [facility], [address] [place] [address], [address] [place] [address], [phone], Angio Technologist: Devaughn Omalley MD [facility] Collection Date/Time: [facility] Results Received Date/Time: [facility] Reported Date/Time: Performed By: #### 3 128 #### [facility] [address] [place] [address] TSH Qn 1.51 m[IU]/L Normal [facility] Investigator Operator Comment on above: Order Comment: [facility] Testing performed at: [employer], [email or web address] [facility], [address] [facility], [address] [place] [address], [phone], Angio Technologist: Devaughn Omalley MD [facility] Date/Time: [facility] Results Received Date/Time: [facility] Reported Date/Time: Result Comment: Refe rence Range > or = 20 Years 0.40-4.50 Ranges First trimester 0.26-2.66 Second trimester 0.55-2.73 Third trimester 0.43-2.91 Performed By: #### 3 128 #### [facility] [address] [place] [address] Office Visit (Cardiology)on 06-04-2021 Follow-up visit Diagnoses/Problems [...] 04Jun2021 10:58AM Heart Rate88, L Brachial Artery Ikwnkbdr030, LUE, Sitting Jszaqiagz17, LUE, Sitting Height5 ft 7 in Lclmym397 lb BMI Cextjssoyh91.3 kg/m2 BSA Calculated1.72 Tobacco Useb) No Fall [...] 2021 1:39PM (more content not included)... Normal [employer] Tobacco Screening.on 022 Fall risk assessment c) Not medically indicated MP-No rth [facility] [place] 250 DO Work Phone: Tobacco use status [facility] b) No MP-Merged With [facility] [place] 250 DO Work Phone: HCG, SERUM, QUALITATIVEon hCG Qual Negative [facility] [place], [place] Coding Summary.on 05-09-2018 Coding Summary. CODING DATE: 018 [facility] STATUS: Home (Routine DC) PAYOR: Government [...] CphT Date Saved: 05/09/2018 10:03 am Normal [facility] Lab Miscellaneouson 05-07-20 18 Status See Ref Lab Report Normal [facility] Comment on above: Performed By: #### 1 [id number] #### [facility] [address] [place] [address] Lab Miscellaneouson 04-28-20 Test Name PAP [facility] Comment on above: Performed By: #### 1 [id number] #### [facility] [address] [place] [address] Vital Signs Date Time Vital Sign Value Performing Clinician Gerald gutierrez 09-15-2021 14:33-0400 Diastolic blood pressure 70 mm[Hg] [address] 09-15-2021 14:33-0400 Heart rate 108 /min [address] 09-15-2021 14:33-0400 Systolic blood pressure 141 mm[Hg] [address] 09-15-2021 10:30-0400 Body temperature 98.4 [degF] [address] 09-15-2021 10:30-0400 Respiratory rate 18 /min [address] 09-15-2021 10:30-0400 SaO2% (BldA) [Mass fraction] 100 % [address] 06-04-2021 10:58-0500 Body height 170.18 cm Sol Llanos Danielle Work Phone: [facility] 250 DO Work Phone: 06-04-2021 10:58-0500 Body mass index (BMI) [Ratio] 21.3 kg/m2 Sol Llanos SurgeonKidzjuanpablo Work Phone: [facility] 250 DO Work Phone: 06-04-2021 10:58-0500 Body surface area Derived from formula 1.72 m2 Sol Llanos SurgeonKidzjuanpablo Work Phone: [facility] 250 DO Work Phone: 06-04-2021 10:58-0500 Body weight 61.69 kg Sol Gibbs Work Phone: [facility] 250 DO Work Phone: 06-04-2021 10:58-0500 Diastolic blood pressure 53 mm[Hg] Sol Gibbs Work Phone: [facility] 250 DO Work Phone: 06-04-2021 10:58-0500 Heart rate 88 /min Sol Gibbs Work Phone: [facility] 250 DO Work Phone: 06-04-2021 10:58-0500 Systolic blood pressure 108 mm[Hg] Sol Gibbs Work Phone: [facility] 250 DO Work Phone: 11-13-2019 10:40-0400 BMI (Body Mass Index) 20 kg/m2 Malz 1 [facility]- [place], [place] 11-13-2019 10:40-0400 Body Temperature 97.81 [degF] Malz 1 [facility] 11-13-2019 10:40-0400 Body weight 57.92 kg Malz 1 [facility] , [place] 11-13-2019 10:40-0400 BP Diastolic 90 mm[Hg] Malz 1 [facility] , [place] 11-13-2019 10:40-0400 BP Systolic 118 mm[Hg] Malz 1 [facility] , [place] 11-13-2019 10:40-0400 Height 170.2 cm Malz [address] [facility] [place] , [place] 11-13-2019 10:40-0400 Pulse (Heart Rate) 91 /min Malz [address] [facility] [place], [place] 11-13-2019 10:40-0400 Pulse Oximetry 100 % Malz [address] [facility] [place] , [place] 11-13-2019 10:40-0400 Respiratory Rate 16 /min Malz [address] [facility] Encounters Encounter Date Encounter Type Care Provider Facility Start: 09-13-2023 End: 09-13-2023 ambulatory SOL GIBBS Not Available Start: 08-25-2023 End: 08-26-2023 ambulatory ABDOULAYEGerardo PEYMAN [facility] Start: 08-20-2023 End: 08-21-2023 ambulatory TERESO RANKIN [facility] Start: 08-19-2023 End: 08-19-2023 ambulatory KEISHA SOMERS Not Available Start: 08-02-2023 End: 08-02-2023 ambulatory SOL Llanos WONDERLY Not Available Start: 07-28-2023 End: 07-28-2023 ambulatory SOL Viet WONDERLY Not Available Start: 07-21-2023 End: 07-21-2023 ambulatory NICK Bettye FLORO Not Available Start: 06-16-2023 End: 06-17-2023 ambulatory NICK Bettye FLORO Not Available Start: 06-09-2023 End: 06-09-2023 ambulatory Sol Gibbs Facility:[facility] Start: 06-08-2023 End: 06-08-2023 ambulatory MD Sol Gibbs Work Phone: [facility] Work Phone: Start: 06-08-2023 End: 06-08-2023 Departed Referred MD Sol Gibbs Work Phone: [facility] Start: 06-07-2023 End: 06-08-2023 ambulatory NICK Bettye MOOREO Not Available Start: 06-01-2023 End: 06-02-2023 ambulatory [...] Available Start: 09-15-2021 End: 09-16-2021 ambulatory SOL Viet [facility] Start: 09-15-2021 End: 09-15-2021 Subsequent hospital visit by physician Malz Infusion Bed 2 MALZ OP INFUSION Comment on above: Migraine without aur a and with status migrainosus, not intractable (Primary Dx) Start: 06-04-2021 Office outpatient vi sit 15 minutes Sol Llanos Wonderly Work Phone: [facility] 250 DO Work Phone: Start: 11-13-2019 [...] Influenza vaccination Flu vacc ine (Season Ended) [facility], [place] Start: 12-05-2019 DTaP/Tdap/Td vaccine (2 - Td or Tdap) DTaP/Tdap/Td vaccine (2 - Td or Tdap) [facility] Start: 2018 Screening for malign ant neoplasm of cervix [facility] Start: 2016 DTaP/Tdap/Td vaccine (1 - Tdap) DTaP/Tdap/Td vaccine (1 - Tdap) [place], [place] Start: 2015 Hepatitis C screening Hepatitis C sc reen [facility] Start: 2015 Thyroid stimulating hormone measurement TSH [facility] Start: 06-03-2013 TSH Qn TSH testing [place], [place] Start: 2013 Screening for Chlamy lucia trachomatis Chlamydia screen [facility] Start: 2012 HIV screening HIV screen [facility] Start: 2009 Depression Screen Depression Screen [facility] Start: 2008 HPV vaccine (1 - 2-d ose series) HPV vaccine (1 - 2-dose series) [place], [place] Start: 08-12-1998 Hepatitis B vaccine (2 of 3 - 3-dose primary series) Hepatitis B vaccine (2 of 3 - 3-dose primary series) [facility] Start: 1998 Varicella vaccine (1 of 2 - 2-dose childhood series) Varicella vaccine (1 of 2 - 2-dose childhood series) [place], [place] Immunizations Immunization Date Immunization Notes Care Provider Ronny solano 04-23-2021 Moderna COVID-19 Vac cine 100 MCG/0.5ML Intramuscular Suspension Sol Llanos Wonderly Work Phone: [facility] 250 DO Work Phone: 04-09-2021 influenza, injectabl e, quadrivalent, contains preservative Sol Viet Wonderly Work Phone: [facility] 250 DO Work Phone: 06-05-2020 Moderna COVID-19 Vac cine 100 MCG/0.5ML Intramuscular Suspension Sol Llanos Wonderly Work Phone: [facility] 05-08-2020 Moderna COVID-19 Vac cine 100 MCG/0.5ML Intramuscular Suspension Sol Llanos Wonderly Work Phone: [facility] 01-16-2020 influenza virus vacc ine, unspecified formulation Sol Llanos Wonderly Work Phone: [facility] 250 DO Work Phone: 05-08-2019 Moderna COVID-19 Vac cine 100 MCG/0.5ML Intramuscular Suspension Sol Llanos Wonderly Work Phone: [facility] [employer] 250 DO Work Phone: 04-03-2019 influenza, injectabl e, quadrivalent, preservative free Sol Llanos Wonderly Work Phone: [facility] 250 DO Work Phone: 02-14-2019 influenza virus vacc ine, unspecified formulation Sol Llanos Wonderly Work Phone: [facility] [employer] 250 DO Work Phone: 01-25-2018 hepatitis B vaccine, adult dosage Sol Llanos Wonderly Work Phone: [facility] 250 DO Work Phone: 06-21-2017 hepatitis B vaccine, adult dosage Sol Llanos Wonderly Work Phone: [facility] [employer] 250 DO Work Phone: 06-21-2017 varicella virus vaccine Sol Llanos Wonderly Work Phone: [facility] [employer] 250 DO Work Phone: 05-19-2017 varicella virus vaccine Sol Llanos Wonderly Work Phone: [facility] [employer] 250 DO Work Phone: 05-05-2017 Human Papillomavirus 9-valent vaccine Sol Llanos Wonderly Work Phone: [facility] [employer] 250 DO Work Phone: 04-30-2017 hepatitis B vaccine, adult dosage Sol Llanos Wonderly Work Phone: [facility] [employer] 250 DO Work Phone: 12-28-2016 Human Papillomavirus 9-valent vaccine Sol Llanos Wonderjuanpablo Work Phone: [place] [address] DO Work Phone: 10-27-2016 Human Papillomavirus 9-valent vaccine Sol Llanos Wonderly Work Phone: [place] [address] DO Work Phone: 12-04-2009 tetanus toxoid, redu reji diphtheria toxoid, and acellular pertussis vaccine, adsorbed Sol Llanos Wonderly Work Phone: [place] [address] DO Work Phone: 07-15-1998 hepatitis B vaccine, pediatric or pediatric/adolescent dosage Sol Llanos SurgeonKidzjuanpablo Work Phone: [place] [address] DO Work Phone: 07-15-1998 measles, mumps and rubella virus vaccine Sol Llanos SurgeonKidzjuanpablo Work Phone: [place] [address] DO Work Phone: Payers Date Payer Category Payer Worker's Compensation [id number] 2023 Self-pay [id number] 2023 Private Health Insurance [id number] 2023 Unknown [id number] 2023 Unknown [id number] 2019 [employer] ( and others) [facility] xxxxxxxxx 2019-Present [address] [place] [address] xxxxxxxxx [id number] 2019 [employer] ( and others) [id number] .[id number] 1997 Unknown [id number] 2.16.840.1.095202.3.579 .2.185 1997 Unknown [id number] 2.16.840.1.701710.3.579 .2.173 1997 Unknown [id number] 2.16.840.1.081300.3.579 .2.9 1997 Unknown [id number] 2.16.840.1.008298.3.579 .2.9 1997 Unknown [id number] 2.16.840.1.213012.3.579 .2.9 1997 Unknown [id number] 2.16.840.1.036744.3.579 .2.9 1997 Unknown [id number] 2.16.840.1.950959.3.579 .2.1258 1997 Unknown [id number] 2.16.840.1.348732.3.579 .2.9 1997 Unknown [id number] 2.16.840.1.363291.3.579 .2.9 1997 Unknown [id number] 2.16.840.1.750676.3.579 .2.9 1997 Unknown [id number] 2.16.840.1.993407.3.579 .2.9 1997 Unknown [id number] 2.16.840.1.077824.3.579 .2.9 1997 Unknown [id number] 2.16.840.1.358240.3.579 .2.9 1997 Unknown [id number] 2.16.840.1.097571.3.579 .2.9 1997 Unknown [id number] 2.16.840.1.539634.3.579 .2.9 1997 Unknown [id number] 2.16.840.1.859262.3.579 .2.125 Unknown [employer] ( and others) [id number] Unknown [id number] 2.16.840.1.118757.3.579 .2.531 Social History Date Type Detail Facility Start: 06-22-2012 End: 06-14-2021 Tobacco smoking status NHIS Never smoker Mover Start: 06-22-2012 Alcohol intake Not Asked [facility] [place], [place] Start: 1997 Sex Assigned At Not on file M [facility] [place], JESSICA No illicit drug use No illicit drug use M -Merged With [facility] 250 DO Work Phone: Start: 1997 Sex Assigned At Female F [facility] History of Present illness Narrative 09-15-2021 [place] [...] ambulatory from unit. documented in this encounter Mover Work Phone: Evaluation note Note Date & Type Note Facility Evaluation note Diagnosis Migraine without aura and with status migrainosus, not intractable- Primary Migraine without aura, without mention of intractable migraine with status migrainosus documented in this encounter Bin1 ATE Phone: Evaluation note Note Date & Type Note Facility Evaluation note No assessment information availa [facility] Work Phone: Reason for visit Narrative Treatment Plan and Therapy Plan (Routine) - Authorized Note Date & Type Note Facility Reason for visit Narrative Specialty Diagnoses / Procedures Referred By Contac t Referred To Contact Diagnoses Migraine without aura and with status migrainosus, not intractable Procedures MD INJ MAGNESIUM SULFATE MD DEXAMETHASONE SODIUM PHOS MD DRUGS UNCLASSIFIED INJECTION Keisha Somers MD [address] [facility] [address] [place] [address] [facility] Op Infusion [address] [place] [address] Referral ID Status Reason Start Date Expiration Date V isits Requested Visits Authorized Authorized 09/05/2021 09/05/2022 99 99 [facility] ATE Phone: Summary Purpose Family History No Family [...] FoundDocuments on File Type Date Recorded Patient Sales And Catering Coordinator Expl anation Advance Directives and Living Will Power of Adult Day Care Worker Documents on File Type Date Recorded Patient Sales And Catering Coordinator Expl anation ACP-Advance Directive ACP-Power of Adult Day Care Worker Advance Directive Response Recorded Date/ Time Advance [...] section and content) DATE CREATED AUTHOR 03/23/2019 [facility] DATE CREATED AUTHOR AUTHOR'S ORGANIZ ATION 06/23/2019 [facility] DATE CREATED AUTHOR AUTHOR'S ORGANIZ ATION 06/05/2021 [facility] DATE CREATED AUTHOR AUTHOR'S ORGANIZ ATION 09/17/2021 [facility] DATE CREATED AUTHOR AUTHOR'S ORGANIZ ATION 11/08/2021 [facility] dical Specialist DATE CREATED AUTHOR AUTHOR'S ORGANIZ ATION 07/06/2023 [facility] DATE CREATED AUTHOR AUTHOR'S ORGANIZ ATION 08/24/2023 [facility] DATE CREATED AUTHOR AUTHOR'S ORGANIZ ATION 08/29/2023 [facility] DATE CREATED AUTHOR AUTHOR'S ORGANIZ ATION 09/14/2023 [facility] dical Specialists EPIC Reason for Visit (unrecogniz ed section and content) Status Reason Specialty Diagnoses / Procedures Referred By Contact Referred To Contact Authorized Infusion / Infusion Therapy Diagnoses Migraine, unspecified, intractable, without status migrainosus Procedures MD INJ MAGNESIUM SULFATE MD DEXAMETHASONE SODIUM PHOS MD DRUGS UNCLASSIFIED INJECTION Keisha Somers MD [address] [place] [address] [facility] [address] [place] [address] Care Teams (unrecognized sec tion and content) Airplane Tube Builder Relationship Specialty Start Date End Date Sol [...] BE BASED ON THE PRIMARY CLINICAL RECORDS. [employer] provides no warranty or guarantee of the accuracy or completeness of information in this document.
--- NOTE | 2023-09-23 12:52 | PC.NURSE ---
Mary and 14 week old Douglas arrive for support. Mary reports that the GI doctor ok'd Douglas to be fully breastfed and to supplement with fortified formula as needs. Mary states has been going back and forth with feeding method as she does not want PCP to yell at her if the baby is not gaining weight as the Doctor wants. Feelings validated and pt encouraged to choose feeding method that is best for herself and Douglas who prefers to be at the breast, as well as taking fortified milk from bottle while mom returns to work. 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 Mom states baby has large regurg after and has small spit ups when feeds from bottle. Discussed heavy let down that may be overwhelming for his gut. Baby is on Pepcid as he has gastric reflux. Barium swallow studies were negative. and all other testing has come back normal/negative as well. Discussed dropping milk supply in last month. Mom reports + Covid when Douglas was in the hospital, started low dose BCP same week returned to work next week and very stressed with not gaining as well as starting a new job. Discussed power pumping morning and evening [place]. on days off of work. Also discussed use of Mother love herbals for milk supply support. Pt interested in all as she really prefers to breastfeed her son, custodial. Leaves ambulatory, will call LC as needs.
== END 2023-09-23 13:07 | disposition home or self-care (01) ==
LOC: FBCO 08:05
PROVIDERS: PCP Family Medicine; Visit Provider Obstetrics & Gynecology
DX: Z39.1 Encounter for care and examination of lactating mother (principal)
CPT/HCPCS: G0463

== ENCOUNTER 2024-08-04 10:04 | Outpatient (OUT) | payer OTHER, SELFPAY ==
--- NOTE | 2024-08-04 10:13 | ECG_ITS ---
[facility] Test Date: 2024-08-04 Pat Name: EVELYN MARION Department: Room: - Gender: Female Frame Operator: : 1995 Requested By: PILY ROCHE Order Number: [id number] Reading MD: JOEY JAMA M.D. Measurements Intervals [place] Rate: 84 P: 16 [place]: 138 QRS: 71 QRSD: 105 T: 11 QT: 358 QTc: 423 Interpretive Statements SINUS RHYTHM INCOMPLETE RIGHT BUNDLE BRANCH BLOCK [90+ ms QRS DURATION, TERMINAL R IN V1/V2, 40+ ms S IN I/aVL/V4/V5/V6] Borderline ECG No previous ECG available for comparison Electronically Signed On 08-04-2024 17:39:40 EDT by JOEY JAMA M.D.
== END 2024-08-04 10:05 | disposition home or self-care (01) ==
PROVIDERS: PCP Family Medicine; Visit Provider Obstetrics & Gynecology
DX: Z01.810 Encounter for preprocedural cardiovascular examination (principal); R10.2 Pelvic and perineal pain; N83.291 Other ovarian cyst, right side; D25.9 Leiomyoma of uterus, unspecified; R18.8 Other ascites
CPT/HCPCS: 93005

== ENCOUNTER 2024-08-18 08:31 | Day surgery (SDC) | payer OTHER, SELFPAY ==
[2024-08-04 10:45] VITALS: BP 129/80; PULSE 87; TEMP 36.4; O2SAT 98; BMI 25.2
[2024-08-18] VITALS (13 sets, daily range): BP systolic 115–153; BP diastolic 66–88; PULSE 75–97; TEMP 36.1–36.4; O2SAT 93–100; BMI 24.9
[2024-08-18 08:44] LABS: Basophils Percent Auto 0.2 % (0.2-2.0); Eosinophils Absolute Auto 0.1 10^3/uL (0.0-0.7); Eosinophils Percent Auto 1.9 % (0.9-7.0); Hematocrit 38.9 % (36.0-48.0); Hemoglobin 12.5 g/dL (12.0-16.0); Immature Granulocytes Abs Auto 0.01 10^3/uL (0.00-0.03); Immature Granulocytes Pct Auto 0.2 % (0.0-0.5); Lymphocytes Absolute Auto 1.5 10^3/uL (1.2-3.8); Lymphocytes Percent Auto 23.7 % (20.5-60.0); Mean Corpuscular HGB Conc 32.1 g/dL (29.9-35.2); Mean Corpuscular Hemoglobin 27.9 pg (26.7-34.0); Mean Corpuscular Volume 86.8 fL (81.0-99.0); Mean Platelet Volume 9.9 fL (9.5-13.5); Monocytes Absolute Auto 0.6 10^3/uL (0.3-0.8); Monocytes Percent Auto 8.9 % (1.7-12.0); Neutrophils Absolute Auto 4.1 10^3/uL (1.4-6.5); Neutrophils Percent Auto 65.1 % (43.0-75.0); Platelet Count 263 10^3/uL (150-450); Red Blood Count 4.48 10^6/uL (4.20-5.40); Red Cell Distribution Width 13.2 % (11.0-15.0); White Blood Count 6.3 10^3/uL (4.0-11.0)
[2024-08-18 09:09] LABS: HCG Quantitative <1 mIU/mL
[2024-08-18] MEDS: LACTATED RINGER'S SOLUTION 1,000 ML 50 ML IV ×2 (09:10→12:59)
--- NOTE | 2024-08-18 12:27 | P.ON_ITS ---
Brief Operative Note Date of procedure: 08/18/24 Pre-op diagnosis general: menorrhagia, pelvic pain, dysmenorrhea Post-op diagnosis: same as pre-op Procedure: NAME OF PROCEDURE: [ D&c hysteroscopy, diagnostic laparoscopy] PROCEDURE: The patient was taken back to the Operating Room where she was prepped and draped in normal sterile fashion after being placed under general anesthesia without difficulty. She was also placed in the dorsal lithotomy position. A weighted speculum was placed in the patient?s vagina. The anterior lip of the cervix was identified and grasped with a single tooth tenaculum. The patient?s uterus was then sounded roughly to [? 8] cm. The patient was then gently dilated using Hegar dilators. The hysteroscope was passed through the patient?s cervix into the uterus. Both ostia were identified. fluffy appearing endometrium. No gross evidence of malignancy, no gross evidence of polyps or fibroids. The hysteroscope was then removed from the uterus. gentle currettage was performed. The endometrial curettings were sent out to pathology. The single tooth tenaculum was then removed from the patient's anterior lip of the cervix where excellent hemostasis was noted. All instruments were removed from the patient?s vagina. A sponge stick was placed into the patient's vagina. Attention was turned to the patient's abdomen, where a small umbilical incision was made. The fascia was tented using Mckenna clamps and the fascia was entered sharply. Confirmation of intraabdominal placement of the 10 mm port was confirmed under direct visualization using a laparoscope. The patient's abdomen was then insufflated using CO2 gas with approximately 4 liters. A second port was placed left laterally, this was done under direct visualization with a 5 mm port. Survey of the patient's abdomen demonstrated normal liver and gallbladder. Survey of the patient's pelvic anatomy demonstrated normal appearing rt and lt ovary and tubes as well as normal appearing uterus. No endometrial implants could be noted, no evidence of any pelvic disease was seen, normal appearing pelvic cavity. All instruments were removed from the patient's abdomen. The patient's abdomen was deinsufflated of CO2 gas. The patient tolerated the procedure well. Sponge stick was removed from the patient's vagina. The patient's infraumbilical fascia was closed using #0 Vicryl on a GI needle. The patient's skin was closed laterally and infraumbilically using 4-0 Vicryl. The patient tolerated the procedure well. Sponge, lap and needle counts were correct x 2. The patient was taken to Recovery Room in stable condition. Anesthesia: RAVI Surgeon: Holger [employer] [employer] Caretaker: Sue Owens Estimated blood loss (mL): 5 Pathology: other (endometrial currettings) Condition: stable Disposition: PACU Urinary Catheter Management Urinary Catheter Management Urethral: Cath placed during this visit: no
[2024-08-18] MEDS: HYDROMORPHONE HCL 0.5 MG/0.5 ML SYRINGE IV (12:55)
[2024-08-18] MEDS: HYDROCODONE/ACET 5-325 MG TABLET 1 TAB PO (13:21)
--- NOTE | 2024-08-18 14:05 | PC.NURSE ---
Denies urge to void
--- NOTE | 2024-08-18 14:36 | PC.NURSE ---
Up to bathroom and voids without difficulty; small amount of bleeding noted in toliet
== END 2024-08-18 14:39 | disposition home or self-care (01) ==
PROVIDERS: PCP Family Medicine; Visit Provider Obstetrics & Gynecology
PROC: (CPT 840; principal; 2024-08-18 10:10)
DX: R10.2 Pelvic and perineal pain (principal); D25.9 Leiomyoma of uterus, unspecified; R18.8 Other ascites; N83.291 Other ovarian cyst, right side; E04.1 Nontoxic single thyroid nodule
CPT/HCPCS: 49320; 58558; 36415; 84702; 85025; 88305; J1100; J1171; J1885; J2250; J2405; J2704; J3010